=== PATIENT | female | born 1945 | race Caucasian/White ===

== ENCOUNTER 2020-09-26 14:56 | Emergency (ER) | payer OTHER, SELFPAY ==
[2020-09-26 15:25] VITALS: BP 144/56; PULSE 106; RESP 16; TEMP 37.1; O2SAT 100; BMI 20.3
--- NOTE | 2020-09-26 15:40 | ED_ITS ---
HPI - Back Pain/Injury General Chief Complaint: Back Pain/Injury Stated Complaint: Back Pain Time Seen by Provider: 09/26/20 15:39 History of Present Illness HPI Narrative: Patient complains of for 5 months of slowly worsening back pain with no changes in pattern of bowel or bladder, no weakness in her legs, no fever no chills no dysuria, no injury Patient has a history of breast cancer and is followed by an oncologist at [facility] The pain is described as moderate to severe and is worse with movement and she can be comfortable at rest She has been taking Motrin without relief This is been going on for several months Related Data Previous Rx's Medication Instructions Recorded oxycodone 5 mg PO Q6H PRN #14 cap 09/26/20 oxycodone 5 mg PO Q6H PRN #14 cap 09/26/20 Allergies Allergy/AdvReac Type Severity Reaction Status Date / Time codeine Allergy Dizziness Verified 09/26/20 15:37 Penicillins Allergy Hives Verified 09/26/20 15:37 propoxyphene [From Darvon] Allergy Dizziness Verified 09/26/20 15:37 Review of Systems Review of Systems: Review of systems is positive for back pain which radiates into the gluteal area There is no numbness no weakness no incontinence no changes to bowel or bladder no fever no chills no chest pain no abdominal pain no rash, no headache, no diz ziness Yes all other systems are reviewed and are negative [facility] Past Medical History [facility] Narrative: PMH is significant for breast cancer Medical History (Updated 09/26/20 @ 19:44 by GREG Flood) Breast CA Surgical History (Updated 09/26/20 @ 15:31 by Jess Altamirano) History of lumpectomy of left breast Social History Social History Alcohol intake: never Smoked in Last 30 Days: No Use of substances other than those prescribed or required for medical reasons: No Advance Directives: No Advance Directives Information Provided: Yes Physical Exam Vital Signs: Vital Signs: Last Vital Signs Temp 98.8 F 09/26/20 18:52 Pulse 90 09/26/20 18:52 Resp 16 09/26/20 18:52 BP 188/76 H 09/26/20 18:52 Pulse Ox 100 09/26/20 18:52 Body Mass Index 20.3 Patient is A&O x3, uncomfortable when she stands up and changes position but comfortable laying down, she is able to ambulate with her cane Head is normocephalic atraumatic neck is supple chest is clear to auscultation bilaterally no adventitious sounds the heart no obvious murmur the abdomen is soft and nontender the extremities are full range of motion x4 without tenderness or swelling the back exam there is tenderness diffusely over the lower lumbar area including over the bones, the skin is intact there is no redness or warmth, there is no CVA tenderness Neuro motor is 5/5x4, sensation is intact, patient walks with a limping gait using a cane due to pain in her back Course Course Course Narrative: Patient was treated with analgesics with some relief of pain CT scan was done and showed metastatic disease to the bones and the liver with a pathologic fracture at T12 This was discussed with the patient who understood the importance of follow-up with her oncologist Her oncologist is at [facility], I called the service and got a doctor Kannan who was covering for him The findings were discussed and he said the patient could be followed very closely to call the office Sunday and she could be seen early next week This was discussed with the patient was also offered admission for pain control The patient refused admission and wanted to go home and said she could follow on Sunday with her oncologist and she was given a copy of the disc and was able to ambulate from the ER using her cane Discharge Plan Discharge Clinical Impression: Pathologic fracture Qualifiers: Pathology associated with fracture: neoplastic disease Site of pathological fracture: vertebra Encounter type: sequela Qualified Code(s): M84.58XS - Pathological fracture in neoplastic disease, other specified site, sequela Breast carcinoma metastatic to multiple sites Qualifiers: Laterality: unspecified laterality Qualified Code(s): C50.919 - Malignant neoplasm of unspecified site of unspecified female breast Patient Disposition: Home, Self-Care Additional Instructions: The pain in your back is from spread of breast cancer to your bones and has resulted in a compression fracture in your spine I spoke to a partner of her oncologist who said they could see you very early next week and you should call 1st thing Sunday to be seen by your oncologist We gave you a copy of the disc which they will need so bring it to the visit Return to the ER any time for any worse condition or any concerns Prescriptions: New oxycodone 5 mg capsule 5 mg PO Q6H PRN (Reason: pain) Qty: 14 RF: 0 oxycodone 5 mg capsule 5 mg PO Q6H PRN (Reason: pain) Qty: 14 RF: 0 Interventions: ED Discharge Assessment Last Done: 09/26/20 20:35 Discharge Date/Time: 09/26/20 20:38
--- NOTE | 2020-09-26 15:52 | CT_ITS ---
EXAMINATION: CT ABDOMEN AND PELVIS WITHOUT CONTRAST CLINICAL INFORMATION: Back pain. History of breast cancer. COMPARISON: None TECHNIQUE: Multidetector volumetric imaging was performed from the superior aspect of the liver through the pubic symphysis. Sagittal and coronal reformatted images were obtained on the technologist's workstation. This CT examination was performed using dose optimization techniques as appropriate, variously including the following: *Automated exposure control *Adjustment of mA and/or kV according to patient size (this includes techniques or standardized protocols for targeted exams where dose is matched to indication/reason for exam; i.e. extremities or head) *Use of iterative reconstruction technique DLP: 573 mGy-cm FINDINGS: IMAGED THORAX: Incompletely imaged elongated mass within the inferior left breast extends to and through the skin surface. LIVER, GALLBLADDER, AND BILIARY TREE: Diffuse metastatic disease throughout the liver. No intra or extrahepatic biliary dilatation. Gallbladder unremarkable. PANCREAS: Unremarkable. SPLEEN: Unremarkable. ADRENAL GLANDS: There is a 2.3 x 1.4 cm left adrenal nodule. Right adrenal gland is normal. KIDNEYS AND URETERS: Bilateral nonobstructive intrarenal calculi are present, at least 5 on the left and 6 on the right measuring up to 3 mm. No hydronephrosis or perinephric abnormality. Ureters are normal in course and caliber. BLADDER: Unremarkable. GASTROINTESTINAL TRACT: Pancolonic diverticulosis. No evidence of diverticulitis. Moderate hiatal hernia. Small bowel unremarkable. ABDOMINAL WALL: No significant hernia is appreciated. LYMPH NODES: Pathologically enlarged left pelvic lymph nodes measure up to 2.3 x 1.5 cm. VASCULAR: Aorta is atherosclerotic but normal caliber. PELVIC VISCERA: Uterus and adnexa unremarkable. OSSEOUS STRUCTURES: Extensive osseous metastatic disease present throughout included axial and appendicular skeleton. There is a compression fracture at T12 resulting in 50% height loss anteriorly and 25% height loss posteriorly with mild dorsal convexity of the posterior cortex, resulting in mild central canal stenosis. This fracture is age indeterminate. Lucency extends into the posterior elements on the left at this level indicating that it represents a pathologic fracture. There is extensive involvement of the pelvis, particularly the left iliac bone and left hemisacrum with soft tissue components extending into the overlying musculature including the iliac is and gluteus minimus. CT/CT abdomen pelvis wo con IMPRESSION: * Pathologic compression fracture at T12 results in 75% height loss centrally, 50% height loss anteriorly and 25% height loss posteriorly resulting in mild central canal stenosis. * Extensive osseous metastatic involvement without additional pathologic fracture elsewhere. * Fungating left breast mass, partially imaged. * Diffuse metastatic involvement of the liver, with pathologic left pelvic adenopathy. * Bilateral nonobstructive intrarenal calculi. * Left adrenal 2.3 cm nodule.
[2020-09-26] MEDS: oxyCODONE HCl Immed Release 5 MG TABLET 2.5 MG PO ×2 (18:50→19:49)
[2020-09-26 18:52] VITALS: BP 188/76; PULSE 90; RESP 16; TEMP 37.1; O2SAT 100
--- NOTE | 2020-09-26 19:13 | PC.NURSE ---
GREG EDDY SPOKE WITH PT ABOUT HER FINDING IN HER CT SCAN AND GREG EDDY SPOKE ON THE PHONE WITH HER ONCOLOGIST THEY WILL BE EXPECTING HER CALL ON SUNDAY TO SCHEDULE AN APT WITH THEM.
== END 2020-09-26 20:38 | disposition home or self-care (01) ==
PROVIDERS: Emergency Provider Emergency Medicine; PCP Family Medicine
DX: M84.58XS Pathological fracture in neoplastic disease, other specified site, sequela (principal); C50.919 Malignant neoplasm of unspecified site of unspecified female breast; M25.552 Pain in left hip; M25.551 Pain in right hip; M54.5 Low back pain; X58.XXXS Exposure to other specified factors, sequela; Z79.899 Other long term (current) drug therapy
CPT/HCPCS: 74176; 99284

== ENCOUNTER 2020-10-13 13:36 | Inpatient (IN) | payer OTHER, MEDICARE, SELFPAY ==
[2020-10-13 13:44] VITALS: BP 115/98; BP 161/85; PULSE 79; PULSE 80; RESP 16; TEMP 36.7; O2SAT 98; BMI 19.9
--- NOTE | 2020-10-13 14:20 | PC.NURSE ---
pt awake, oriented and answers questions appropriately. EMS reports pt was found on a heavily soiled couch, they also report the house was unkempt. Pt appears to understand she had breast cancer but denies spinal mets. When questioned she reports she hurt her back when she was moved on a CT scan table. She also states she once fell in a hole. She does not discuss her cancer or treatment. Pt has been cleaned of large amount of foul smelling stool, also has had dry gauze placed over her chest lesion. The lesion to her chest is raised and red in areas, open and leaking purulent drainage.
--- NOTE | 2020-10-13 14:33 | ED.GENADULT ---
HPI - General Adult General Chief complaint: General Medical Stated complaint: failure to thrive Time Seen by Provider: 10/13/20 14:03 Source: patient and EMS Mode of arrival: EMS Limitations: physical limitation (Intractable back pain) History of Present Illness HPI narrative: 75yoF c PMHx breast Cancer c METs to Liver and Spine, T12 pathological compression fracture presenting to the ED c c/o worsening back pain since her last visit here. Patient reports that she has been unable to get out of bed for days and she has been urinating and having bowel movements on herself due to her back pain that she is unable to control at home despite given oxycodone 5 mg tablets on her last visit here. Patient reports she feels the sensation of having to urinate and have a bowel movement although is unable to actually get to the actual toilet. Therefore EMS was called by the est[facility] of the building she lives in. Patient reports that she has called her oncologist multiple times and has not received a call back for treatment for pain control. Denies any other complaints or concerns at this time. Related Data Previous Rx's Medication Instructions Recorded oxycodone 5 mg PO Q6H PRN #14 cap 09/26/20 oxycodone 5 mg PO Q6H PRN #14 cap 09/26/20 Allergies Allergy/AdvReac Type Severity Reaction Status Date / Time codeine Allergy Dizziness Verified 09/26/20 15:37 Penicillins Allergy Hives Verified 09/26/20 15:37 propoxyphene [From Darvon] Allergy Dizziness Verified 09/26/20 15:37 Review of Systems Review of Systems: Constitutional : No trauma, No Weight loss, No Fever, No Chills, ENT/Mouth : No Hearing loss, No Ear Pain, No Nasal Congestion, No Sinus Pain, No Hoarseness, No sore throat, No Rhinorrhea, No Swallowing Difficulty Cardiovascular : No Chest Pain, No SOB Respiratory : No Cough, No Dyspnea Gastrointestinal : No Nausea, No Vomiting, No Diarrhea, No abdominal Pain, No Hematochezia, No Melena Genitourinary : No Dysuria, No Urinary Frequency, No Hematuria, No Urinary or Bowel Incontinence/retention Musculoskeletal : + Back pain, No neck pain, No joint stiffness, No joint swelling Skin : No Skin Lesions, No rash or signs of infection Neuro : No Weakness, No radiation, No Numbness, No Paresthesias, No headache, no loss of bowel or bladder incontinence, no saddle anesthesia Denies history of IV drug usage. Yes all other systems are reviewed and are negative PMFSH Past Medical History Attestation statement: The following information was validated with the patient. Medical History Breast CA Surgical History History of lumpectomy of left breast Social History Social History Alcohol intake: never Smoking Status: Never smoker Smoked in Last 30 Days: No Use of substances other than those prescribed or required for medical reasons: No Advance Directives: No Advance Directives Information Provided: Yes Physical Exam Vital Signs: Vital Signs: Last Vital Signs Temp 98.5 F 10/13/20 15:30 Pulse 98 10/13/20 15:30 Resp 16 10/13/20 15:30 BP 173/78 H 10/13/20 15:30 Pulse Ox 96 10/13/20 15:30 Body Mass Index 19.9 vital signs have been reviewed as normal and appeared to be correct. Blood pressure normal. Heart rate normal. Respiration rate normal. Temperature normal. Oxygen saturation normal. Appearance: Alert. Oriented X3. No acute distress. Head: Normal external exam. Normocephalic. Atraumatic. No Shelton signs noted. No raccoon eyes noted Eyes: PERRLA. EOMI. Conjunctiva and sclera normal. Eyelids normal. ENT: EAC normal. TM's Normal. Pharynx normal. Uvula midline. Moist mucous membranes. No trismus noted. No drooling noted. No muffled voice noted. Neck: Normal inspection. Neck supple. FROM. No adenopathy. Thyroid Normal. No meningeal signs. No neck mass noted. CVS: Normal heart rate and rhythm. Heart sound normal. No murmurs noted. Pulses normal throughout. Respiratory: No respiratory distress. Painless inspiration. Breath sounds normal. No wheezes/rales/rhonchi noted. Chest nontender. Large mass noted to left anterior chest wall consistent with the patient's cancer. No accessory muscle usage noted or decreased air movement noted. Abdomen: Soft and nontender. Bowel sounds normal in all 4 quadrants. No distention noted. No organomegaly noted. No visible injury noted. Back: No CVA tenderness. Full range of motion noted. No obvious deformities, or edema. Mild para-spinal muscular tenderness from lumbar region to coccyx. Full ROM in back and lower extremities. 5/5 strength hip extension/flexion, abduction, adduction. Mild Lumbar pain with hip flexion against resistance. Straight leg raise test negative on right; Straight leg raise test negative on left; Reflexes normal ankle and knee bilaterally; EHL motor strength normal bilaterally Skin: Skin warm and dry. Normal skin color. Normal skin turgor. No rashes/lacerations noted. Extremities: No lower extremity edema. Extremities exhibit normal range of motion. Extremities nontender. Neuro: Oriented X 3. No motor deficit. No sensory deficit. Reflexes normal. Course Course Course Narrative: 14:25PM - 75yoF c PMHx breast Cancer c METs to Liver and Spine, T12 pathological compression fracture presenting to the ED c c/o worsening back pain And unable to care for herself at home since she left this emergency department. - Plan: Labs, Provide 5 mg of oxycodone, 50 mcg of fentanyl for pain control. Then plan to admit for IR vertebroplasty. I called the patient's pharmacy on [facility] [address] [facility] [address] in [place] and patient is not on any blood thinners. Patient understands agrees with this plan. Reevaluation(s) Reevaluation #1: - BUN 42/creatinine 1.41. Calcium 12.1. Total bilirubin 1.2. Direct bilirubin 0.8. AST 404. ALT 238. Alkaline phosphate 1239. COVID swab negative. All other labs are within normal limits. - Due to the patient's renal function 1 L of IV fluids ordered at this time. The rest of the labs most likely are chronic although unable to compared to priors as there is no other blood work in the system to compare to. +patient has metastatic cancer to liver. - Plan is to admit for pain control and for IR vertebroplasty on Sunday. Patient understands agrees with this plan. Time: 16:07 Medical Decision Making Lab Data Result diagrams: 10/13/20 14:46 10/13/20 14:46 Labs: Lab Results 10/13/20 10/13/20 10/13/20 Range/Units 14:46 14:46 14:46 WBC 11.7 H (4.8-10.8) X10*3/uL RBC 3.82 L (4.20-5.50) X10*6/uL Hgb 10.9 L (12.0-16.0) g/dl Hct 33.8 L (37-47) % MCV 88.5 (80-98) fL MCH 28.5 (27.0-33.0) pg MCHC 32.2 (31.0-35.0) g/dl RDW 14.5 (11.0-16.0) % Plt Count 347 (160-400) X10*3/uL MPV 9.9 (9.4-12.3) fL Immature Gran % (Auto) 1.6 H (0.0-0.4) % Neut % (Auto) 77.8 H (45-73) % Lymph % (Auto) 11.4 L (20-40) % [place] % (Auto) 8.7 (2-11) % Eos % (Auto) 0.2 (0-4) % Baso % (Auto) 0.3 (0-2) % Lymph # (Auto) 1.3 (1.2-4.9) X10*3/uL [place] # (Auto) 1.0 (0.1-1.2) X10*3/uL Eos # (Auto) 0.0 (0.0-0.4) X10*3/uL Baso # (Auto) 0.0 (0.0-0.2) X10*3/uL Abs Immat Gran (auto) 0.19 H (0.00-0.03) X10*3/uL Absolute Neuts (auto) 9.1 H (2.0-8.3) X10*3/uL Absolute Nucleated RBC 0.000 (0.0-0.012) X10*3/uL Nucleated RBC % (auto) 0.0 (0.0-0.2) /100WBC Hold Purple Top SEE NOTE PT 14.8 H (10.8-13.0) SEC INR 1.2 H (0.9-1.1) Sodium (135-145) mmol/L Potassium (3.3-5.1) mmol/l Chloride (96-108) mmol/L Carbon Dioxide (22-29) mmol/L Anion Gap (12-20) BUN (9-16) mg/dL Creatinine (0.5-1.4) mg/dL Estim Creat Clear Calc Estimated GFR Random Glucose (60-115) mg/dL Calcium (8.4-10.2) mg/dL Magnesium (1.6-2.6) mg/dL Total Bilirubin (0.0-1.0) mg/dL Direct Bilirubin (0.0-0.5) mg/dL AST (5-31) U/L ALT (0-31) U/L Alkaline Phosphatase (39-117) U/L Total Protein (6.5-8.0) g/dL Albumin (3.5-5.0) g/dL COVID-19 (REEMA) (Negative) COVID-19 Clin Com 10/13/20 10/13/20 Range/Units 14:46 14:46 WBC (4.8-10.8) X10*3/uL RBC (4.20-5.50) X10*6/uL Hgb (12.0-16.0) g/dl Hct (37-47) % MCV (80-98) fL MCH (27.0-33.0) pg MCHC (31.0-35.0) g/dl RDW (11.0-16.0) % Plt Count (160-400) X10*3/uL MPV (9.4-12.3) fL Immature Gran % (Auto) (0.0-0.4) % Neut % (Auto) (45-73) % Lymph % (Auto) (20-40) % [place] % (Auto) (2-11) % Eos % (Auto) (0-4) % Baso % (Auto) (0-2) % Lymph # (Auto) (1.2-4.9) X10*3/uL [place] # (Auto) (0.1-1.2) X10*3/uL Eos # (Auto) (0.0-0.4) X10*3/uL Baso # (Auto) (0.0-0.2) X10*3/uL Abs Immat Gran (auto) (0.00-0.03) X10*3/uL Absolute Neuts (auto) (2.0-8.3) X10*3/uL Absolute Nucleated RBC (0.0-0.012) X10*3/uL Nucleated RBC % (auto) (0.0-0.2) /100WBC Hold Purple Top PT (10.8-13.0) SEC INR (0.9-1.1) Sodium 143 (135-145) mmol/L Potassium 4.1 (3.3-5.1) mmol/l Chloride 104 (96-108) mmol/L Carbon Dioxide 23 (22-29) mmol/L Anion Gap 20 (12-20) BUN 42 H (9-16) mg/dL Creatinine 1.41 H (0.5-1.4) mg/dL Estim Creat Clear Calc 26.9 Estimated GFR 36 Random Glucose 95 (60-115) mg/dL Calcium 12.1 H (8.4-10.2) mg/dL Magnesium 2.1 (1.6-2.6) mg/dL Total Bilirubin 1.2 H (0.0-1.0) mg/dL Direct Bilirubin 0.8 H (0.0-0.5) mg/dL AST 404 H (5-31) U/L ALT 238 H (0-31) U/L Alkaline Phosphatase 1239 H (39-117) U/L Total Protein 7.4 (6.5-8.0) g/dL Albumin 3.8 (3.5-5.0) g/dL COVID-19 (REEMA) Negative (Negative) COVID-19 Clin Com See Note Critical Care Time Critical Care Time Critical Care Time: Yes Total Critical Care Time: 60 Attestation: I personally attest to this time spent taking care of the patient Discharge Plan Discharge Clinical Impression: Intractable back pain T12 compression fracture Qualifiers: Encounter type: subsequent encounter Patient Disposition: Admitted As Inpatient
[2020-10-13 14:54] LABS: MANUAL DIFF FLAG NO
[2020-10-13 14:57] LABS: Basophils Percent Auto 0.3 % (0-2); Eosinophils Percent Auto 0.2 % (0-4); Hematocrit 33.8 % (37-47); Hemoglobin 10.9 g/dl (12.0-16.0); Imm Gran Abs Auto 0.19 X10*3/uL (0.00-0.03); Imm Gran Pct Auto 1.6 % (0.0-0.4); Lymphocytes Absolute Auto 1.3 X10*3/uL (1.2-4.9); Lymphocytes Percent Auto 11.4 % (20-40); Mean Corpuscular HGB Conc 32.2 g/dl (31.0-35.0); Mean Corpuscular Hemoglobin 28.5 pg (27.0-33.0); Mean Corpuscular Volume 88.5 fL (80-98); Mean Platelet Volume 9.9 fL (9.4-12.3); Monocytes Percent Auto 8.7 % (2-11); Neutrophils Absolute Auto 9.1 X10*3/uL (2.0-8.3); Neutrophils Percent Auto 77.8 % (45-73); Platelet Count 347 X10*3/uL (160-400); Red Blood Count 3.82 X10*6/uL (4.20-5.50); Red Cell Distribution Width 14.5 % (11.0-16.0); White Blood Count 11.7 X10*3/uL (4.8-10.8)
[2020-10-13] MEDS: fentaNYL citrate/PF 100 MCG/2 ML VIAL 50 MCG IVPUSH (14:57)
[2020-10-13] MEDS: oxyCODONE HCl Immed Release 5 MG TABLET PO (15:00)
[2020-10-13 15:03] LABS: INTERNATIONAL NORM RATIO 1.2 (0.9-1.1); Prothrombin Time 14.8 SEC (10.8-13.0)
[2020-10-13 15:21] LABS: COVID-19 Test Negative (Negative); IDNOW Serial# 9DD0AD1C
[2020-10-13 15:22] LABS: Alanine Aminotransferase 238 U/L (0-31); Albumin Level 3.8 g/dL (3.5-5.0); Alkaline Phosphatase 1239 U/L (39-117); Anion Gap 20 (12-20); Aspartate Amino Transferase 404 U/L (5-31); Bilirubin Direct 0.8 mg/dL (0.0-0.5); Bilirubin Total 1.2 mg/dL (0.0-1.0); Blood Urea Nitrogen 42 mg/dL (9-16); Calcium 12.1 mg/dL (8.4-10.2); Carbon Dioxide 23 mmol/L (22-29); Chloride 104 mmol/L (96-108); Creatinine Clr Calc Pharmacy 26.9; Estimated Glomerular Filt Rate 36; Glucose Random 95 mg/dL (60-115); Magnesium 2.1 mg/dL (1.6-2.6); Potassium 4.1 mmol/l (3.3-5.1); Sodium 143 mmol/L (135-145); Total Protein 7.4 g/dL (6.5-8.0)
[2020-10-13 15:30] VITALS: BP 173/78; PULSE 98; RESP 16; TEMP 36.9; O2SAT 96
[2020-10-13 15:53] LABS: Partial Thromboplastin Time 30.5 SEC (24.1-38.0)
--- NOTE | 2020-10-13 16:29 | W.MHC.ACPN ---
Advanced Care Planning Note Advanced Care Planning Note Discussed with: patient Time spent (in minutes): 20 Narrative: I had a chance to meet the patient at time of admission in the emergency. We discussed his current presentation, ongoing medical problems and goals of care. The patient has history of metastatic breast cancer not on any chemotherapy at this point . She has large chest wall mass originating from the previous cancer area. She reports being active earlier this year and able to move around and hike in the mountains around the area. she reported having worsening lower extremity weakness for the last few months and reported significant back pain that started almost 10 days ago. At this point she is not seeking any active treatment but she will follow-up with her oncologist for further assessment and plan. Upon discussing goals of care the patient sees that she does not want to be resuscitated or intubated. A MOLST form was signed and placed in her folder. Problems Discussed (1) Metastatic cancer: (2) Breast CA:
--- NOTE | 2020-10-13 16:33 | P.HPHOSP_ITS ---
History of Present Illness Date of Service: 10/13/20 Chief Complaint: back pain a 75 years old lady with past medical history of breast cancer who presents to the hospital complaining of worsening back pain over the last 10 days. The patient report having lower extremity weakness for couple of months at this point. She was evaluated in the hospital almost [address] scan showing fracture in T12 with losing of 75% of the height of the vertebra. She was discharged home on pain medication but were not helping as her pain continued to get worse and she was a not able to ambulate around. Discussed with IR, plan for kyphoplasty on Sunday Admitted for pain control And kyphoplasty Review of Systems Review of Systems: No fever, chills Lower back pain, general weakness No chest pain, palpitation No shortness of breath or coughing No abdominal pain, nausea or vomiting No urinary symptoms No any rash or wounds PMFSH Medical History Breast CA Surgical History History of lumpectomy of left breast Social History Alcohol intake: never Smoking Status: Never smoker Smoked in Last 30 Days: No Use of substances other than those prescribed or required for medical reasons: No Advance Directives: No Advance Directives Information Provided: Yes Meds Allergies Allergy/AdvReac Type Severity Reaction Status Date / Time codeine Allergy Dizziness Verified 09/26/20 15:37 Penicillins Allergy Hives Verified 09/26/20 15:37 propoxyphene [From Darvon] Allergy Dizziness Verified 09/26/20 15:37 Home Medications Medication Instructions Recorded Confirmed Type No Known Home Meds 10/13/20 10/13/20 History Physical Exam Vital Signs and Narrative: Vital Signs: Last Vital Signs Temp 98.5 F 10/13/20 15:30 Pulse 98 10/13/20 15:30 Resp 16 10/13/20 15:30 BP 173/78 H 10/13/20 15:30 Pulse Ox 96 10/13/20 15:30 Body Mass Index 19.9 Constitutional : Alert, oriented, not in distress Neck : Normal inspection, Supple Cardiovascular : RRR, S1 S2, no lower extremity edema Respiratory : Good bilateral air entry, no crackles, wheezes or rhonchi Gastrointestinal: soft, lax, Normal bowel sounds, Non tender Skin : Warm/Dry, large chest wall mass, bad odor, minimal bleeding noticed originating from breast cancer Neurological : Alert & oriented x3, No focal deficit Results Labs CBC and Chem 7: 10/13/20 14:46 10/13/20 14:46 Labs: Laboratory Results - last 24 hr 10/13/20 10/13/20 10/13/20 14:46 14:46 14:46 MCV 88.5 MCH 28.5 MCHC 32.2 RDW 14.5 Plt Count 347 MPV 9.9 Immature Gran % (Auto) 1.6 H Neut % (Auto) 77.8 H Lymph % (Auto) 11.4 L [place] % (Auto) 8.7 Eos % (Auto) 0.2 Baso % (Auto) 0.3 Lymph # (Auto) 1.3 [place] # (Auto) 1.0 Eos # (Auto) 0.0 Baso # (Auto) 0.0 Abs Immat Gran (auto) 0.19 H Absolute Neuts (auto) 9.1 H Absolute Nucleated RBC 0.000 Nucleated RBC % (auto) 0.0 Hold Purple Top SEE NOTE PT 14.8 H INR 1.2 H APTT 30.5 Anion Gap Estim Creat Clear Calc Estimated GFR Random Glucose Calcium Magnesium Total Bilirubin Direct Bilirubin AST ALT Alkaline Phosphatase Total Protein Albumin COVID-19 (REEMA) COVID-[facility] Global Clin Com 10/13/20 10/13/20 14:46 14:46 MCV MCH MCHC RDW Plt Count MPV Immature Gran % (Auto) Neut % (Auto) Lymph % (Auto) [place] % (Auto) Eos % (Auto) Baso % (Auto) Lymph # (Auto) [place] # (Auto) Eos # (Auto) Baso # (Auto) Abs Immat Gran (auto) Absolute Neuts (auto) Absolute Nucleated RBC Nucleated RBC % (auto) Hold Purple Top PT INR APTT Anion Gap 20 Estim Creat Clear Calc 26.9 Estimated GFR 36 Random Glucose 95 Calcium 12.1 H Magnesium 2.1 Total Bilirubin 1.2 H Direct Bilirubin 0.8 H AST 404 H ALT 238 H Alkaline Phosphatase 1239 H Total Protein 7.4 Albumin 3.8 COVID-19 (REEMA) Negative COVID-19 Clin Com See Note Assessment and Plan (1) Metastatic cancer: Status: Acute (2) History of lumpectomy of left breast: Status: Acute (3) Breast CA: Status: Acute (4) Intractable back pain: Status: Acute (5) T12 compression fracture: Qualifiers: Encounter type: subsequent encounter Status: Acute a 75 years old lady with past medical history of breast cancer who presents to the hospital complaining of worsening back pain over the last 10 days. Intractable back pain T12 compression Fracture CT scan as reported Oxycodone as needed for pain Plan for IR kyphoplasty Sunday Keep NPO night metastatic breast cancer Chest wall mass Not on chemotherapy at this point Oncology following in [facility] hypertension Elevated blood pressure readings home Will continue to monitor DVT PPX SCDs,
[2020-10-13] MEDS: 0.9 % Sodium Chloride 1,000 ML 999 ML IVCONT (16:44)
[2020-10-13 18:48] VITALS: BP 159/76; PULSE 90; RESP 16; TEMP 36.9; O2SAT 96
[2020-10-13 19:10] LABS: Glucose Urine UA NEG (NEG); Leukocyte Esterase Urine 1+ (NEG); Nitrite Urine POS (NEG); PH 5.5 (5.0-8.0); Specific Gravity - Urine 1.025 (1.005-1.025); Urine Blood TRACE (NEG); Urine Ketones NEG (NEG); Urine Protein TRACE MG/DL (NEG-TRACE)
[2020-10-13 19:13] LABS: Appearance Urine CLEAR; Color Urine YELLOW
[2020-10-13 19:33] LABS: Bacteria Urine 2+ /LPF; RBC Urine 0-2 /HPF (0)
[2020-10-13 19:43] VITALS: BP 172/86; PULSE 97; RESP 17; TEMP 36.3; O2SAT 98
[2020-10-13] MEDS: 0.9 % Sodium Chloride Flush 3 ML SYRINGE IVFLUSH (23:53)
[2020-10-14] VITALS (9 sets, daily range): BP systolic 111–144; BP diastolic 56–71; PULSE 81–90; RESP 16–19; TEMP 36.3–36.8; O2SAT 77–99
[2020-10-14] MEDS: 0.9 % Sodium Chloride Flush 3 ML SYRINGE IVFLUSH ×3 (07:45→23:31)
[2020-10-14] MEDS: Acetaminophen 325 MG TABLET 650 MG PO (07:50)
[2020-10-14] MEDS: oxyCODONE HCl Immed Release 5 MG TABLET PO (07:50)
[2020-10-14 08:09] LABS: Hematocrit 29.1 % (37-47); Hemoglobin 9.3 g/dl (12.0-16.0); Mean Corpuscular Hemoglobin 28.4 pg (27.0-33.0); Mean Corpuscular Volume 88.7 fL (80-98); Mean Platelet Volume 10.3 fL (9.4-12.3); Platelet Count 311 X10*3/uL (160-400); Red Blood Count 3.28 X10*6/uL (4.20-5.50); Red Cell Distribution Width 14.6 % (11.0-16.0); White Blood Count 8.9 X10*3/uL (4.8-10.8)
[2020-10-14 08:39] LABS: Alanine Aminotransferase 206 U/L (0-31); Alkaline Phosphatase 1032 U/L (39-117); Aspartate Amino Transferase 313 U/L (5-31); Bilirubin Direct 0.4 mg/dL (0.0-0.5); Bilirubin Total 0.5 mg/dL (0.0-1.0); Blood Urea Nitrogen 34 mg/dL (9-16); Creatinine Clr Calc Pharmacy 29.8; Estimated Glomerular Filt Rate 41; Glucose Random 125 mg/dL (60-115)
[2020-10-14 08:55] LABS: Anion Gap 14 (12-20); Calcium 10.8 mg/dL (8.4-10.2); Carbon Dioxide 22 mmol/L (22-29); Chloride 107 mmol/L (96-108); Potassium 3.7 mmol/l (3.3-5.1); Sodium 139 mmol/L (135-145)
--- NOTE | 2020-10-14 12:08 | P.PNIM_ITS ---
Subjective Subjective Date of Service: 10/14/20 Interval History: the patient was seen and evaluated this morning Laying in bed, complaining of low back pain that goes to her lower extremities Denies any fever, chills or shortness of breath No reported other overnight events. Systemic review: No fever, chills , feels generalized weakness No chest pain, palpitation No shortness of breath or coughing No abdominal pain, nausea or vomiting No urinary symptoms Physical Exam Vital Signs: Vital Signs: Last Vital Signs Temp 98.1 F 10/14/20 11:35 Pulse 82 10/14/20 11:35 Resp 16 10/14/20 11:35 BP 120/70 10/14/20 11:35 Pulse Ox 77 L 10/14/20 11:35 Body Mass Index 19.9 Constitutional : Alert, oriented, not in distress Neck : Normal inspection, Supple Cardiovascular : RRR, S1 S2, no lower extremity edema Respiratory : Good bilateral air entry, no crackles, wheezes or rhonchi Gastrointestinal: soft, lax, Normal bowel sounds, Non tender Skin : Warm/Dry, large chest wall mass, bad odor, minimal bleeding noticed originating from breast cancer Neurological : Alert & oriented x3, No focal deficit Objective Data Current Medications Generic Name Dose Route Start Last Admin Trade Name Freq PRN Reason Stop Dose Admin Acetaminophen 650 mg 10/13/20 19:10 10/14/20 07:50 Acetaminophen 325 Mg Tablet PO 650 mg Q6H PRN Administration Pain, Mild (Pain Scale 1-3) Oxycodone HCl 5 mg 10/13/20 19:10 10/14/20 07:50 Oxycodone Hcl Immed Release 5 Mg Tablet PO 5 mg Q6H PRN Administration Pain, Severe (Pain Scale 7-10) Pharmacy Consult 1 each 10/13/20 14:25 Consult Rx Perform Med Rec MISCELLANE ONCE PRN Consult order Sodium Chloride 3 ml 10/14/20 00:00 10/14/20 07:45 0.9 % Sodium Chloride Flush 3 Ml Syringe IVFLUSH 3 ml QSHIFT LETICIA Administration Labs CBC & Chem 7: 10/14/20 07:09 10/14/20 06:17 Microbiology Microbiology Results: Microbiology 10/13/20 19:00 Urine clean catch - Clean Catch Midstream Urine Culture - Preliminary Gram negative roel Assessment and Plan (1) Metastatic cancer: Status: Acute (2) History of lumpectomy of left breast: Status: Acute (3) Breast CA: Status: Acute (4) Intractable back pain: Status: Acute (5) T12 compression fracture: Status: Acute Assessment and Plan: a 75 years old lady with past medical history of breast cancer who presents to the hospital complaining of worsening back pain over the last 10 days. Intractable back pain T12 compression Fracture CT scan as reported, 75% loss of T12 vertebrae Oxycodone as needed for pain Plan for IR kyphoplasty tomorrow morning Keep NPO night To repeat CT scan before and after the procedure Anemia, acute on chronic Hemoglobin dropped to 9.3 from 10.8 at admission Unclear baseline Likely dilution inpatient, chronically could be secondary to cancer of chronic loss To check occult blood Monitor CBC UTI Urine growing gram-negative rods Start ceftriaxone pending final sensitivity metastatic breast cancer Chest wall mass Not on chemotherapy at this point Oncology following in [facility] hypertension Elevated blood pressure readings home Will continue to monitor DVT PPX SCDs,
[2020-10-14] MEDS: cefTRIAXone sodium 1 GM in 0.9 % Sodium Chloride 50 ML IV (12:43)
--- NOTE | 2020-10-14 13:02 | MHC.CM.PN ---
Pt reports she lives alone and has no DME or services, pt reports prior to this injury she has not needed anything. Pt reports she does not know who her PCP is but she goes to the [facility]. pt reports she sees an oncologist at [facility] and has so many doctors she cannot remember anyones name. Pt reports she was told she would have a VNA at when she goes home but does not know what agency and does not have a preference. Pt will likely need a chair van or ambulance home DC TBD home vs home with VNA vs STR
[2020-10-14] MEDS: Morphine Sulfate 2 MG/ML CARTRIDGE IVPUSH ×2 (14:03→19:30)
[2020-10-15] VITALS (9 sets, daily range): BP systolic 125–174; BP diastolic 73–83; PULSE 84–111; RESP 18–19; TEMP 36.1–37; O2SAT 98–99
--- NOTE | 2020-10-15 | CT_ITS ---
EXAMINATION: CT LUMBAR SPINE WITHOUT CONTRAST CLINICAL INFORMATION: Post kyphoplasty T12 vertebra. COMPARISON: None TECHNIQUE: Axial 2 mm thick and reformatted 2 mm thick images of thoracic spine were obtained from T9-T10 through L2-L3 disc levels. This CT examination was performed using dose optimization techniques as appropriate, variously including the following: *Automated exposure control *Adjustment of mA and/or kV according to patient size (this includes techniques or standardized protocols for targeted exams where dose is matched to indication/reason for exam; i.e. extremities or head) *Use of iterative reconstruction technique DLP; 492 mGy-cm FINDINGS: On the sagittal reconstructed images there is adequate cement occupying the anterior two thirds of T12 vertebra. There is minimal cement migration along the superior endplate fracture line into the adjacent T11-T12 disc. No extravasation of cement seen in the paravertebral space or in the spinal canal. Fracture lines extending through the left pedicle and superior endplate are again visualized and are unchanged to previous lumbar spine performed prior to kyphoplasty. Small posterior bony component is stable compared to previous kyphoplasty exam. The T10, T11, L1 and L2 vertebral heights are maintained. The disc heights are normal. There is a superior endplate Schmorl's node T11 vertebra. CT/CT lumbar spine wo con IMPRESSION: Adequate amount of cement occupying the T12 compression fracture with minimal extravasation in the superior T11-T12 disc extending through an endplate fracture. In addition to vertebral body fracture there is a fracture involving left T12 pedicle.
[2020-10-15 07:15] LABS: Hematocrit 29.3 % (37-47); Hemoglobin 9.3 g/dl (12.0-16.0); Mean Corpuscular HGB Conc 31.7 g/dl (31.0-35.0); Mean Corpuscular Hemoglobin 28.5 pg (27.0-33.0); Mean Corpuscular Volume 89.9 fL (80-98); Mean Platelet Volume 10.3 fL (9.4-12.3); Platelet Count 307 X10*3/uL (160-400); Red Blood Count 3.26 X10*6/uL (4.20-5.50); Red Cell Distribution Width 14.6 % (11.0-16.0); White Blood Count 9.4 X10*3/uL (4.8-10.8)
[2020-10-15 07:28] LABS: INTERNATIONAL NORM RATIO 1.2 (0.9-1.1); Prothrombin Time 13.8 SEC (10.8-13.0)
[2020-10-15] MEDS: 0.9 % Sodium Chloride Flush 3 ML SYRINGE IVFLUSH ×2 (07:29→15:38)
--- NOTE | 2020-10-15 08:00 | CT_ITS ---
EXAMINATION: CT THORACIC SPINE WITHOUT CONTRAST CLINICAL INFORMATION: T12 pathological compression fracture with pre-kyphoplasty evaluation. COMPARISON: CT abdomen and pelvis 09/26/2020. TECHNIQUE: 3 mm thin axial and reformatted 3 mm thin sagittal and coronal images of thoracic spine were obtained from mid T10 through L2-L3 disc level. This CT examination was performed using dose optimization techniques as appropriate, variously including the following: *Automated exposure control *Adjustment of mA and/or kV according to patient size (this includes techniques or standardized protocols for targeted exams where dose is matched to indication/reason for exam; i.e. extremities or head) *Use of iterative reconstruction technique DLP: 433 mGy-cm FINDINGS: On limited evaluation of thoracic spine, there is mild thoracic kyphosis centered at T12 vertebra. There is acute compression fracture T12 vertebra with approximately 50-60% loss of vertebral height more centrally and to the left. There are multiple fractured fissures seen traversing the superior endplate and likely left pedicular fracture. There is a posterior retropulsion of bony fragment resulting in mild central canal stenosis. T12 bone marrow is heterogenous extending into the pedicles more so on the right than left. The findings are consistent with pathological fracture. The adjacent T11, T10, L1 and L2 vertebra and the posterior elements appear intact. The paravertebral soft tissues are normal. Incidentally noted are multiple hypodense liver lesions consistent with metastatic liver disease. CT/CT thoracic spine wo con IMPRESSION: T12 pathological fracture with approximately 50-60% loss of vertebral height more centrally. The bone marrow signal is heterogeneous with extension into the posterior pedicles. There is posterior retropulsion of bone resulting in mild spinal canal stenosis. Multiple liver metastasis. This was better described on previous CT abdomen and pelvis exam 09/26/2020.
[2020-10-15 08:05] LABS: Anion Gap 14 (12-20); Blood Urea Nitrogen 27 mg/dL (9-16); Calcium 10.5 mg/dL (8.4-10.2); Carbon Dioxide 23 mmol/L (22-29); Chloride 106 mmol/L (96-108); Creatinine Clr Calc Pharmacy 35.7; Estimated Glomerular Filt Rate 50; Glucose Random 100 mg/dL (60-115); Potassium 4.2 mmol/l (3.3-5.1); Sodium 139 mmol/L (135-145)
--- NOTE | 2020-10-15 08:48 | HO.ANESPROP2 ---
[facility] Past Medical History Medical History Breast CA Surgical History Surgical History History of lumpectomy of left breast Social History Social History Household Members: None Housing: Condominium Do you presently have visiting nurse or other home services: No Alcohol intake: never Smoking Status: Never smoker Smoked in Last 30 Days: No Patient Interested in Nicotine Replacement: No Patient Given Instructions on How to Stop Smoking: No Second Hand Smoke Exposure: No Use of substances other than those prescribed or required for medical reasons: No Currently Displaying Signs/Symptoms of Drug Intoxication Withdrawal: No Any prior treatment program specific to substance use: No Have you been hit, kicked, punched, or otherwise hurt by someone within the past year? If so, by whom?: No Do you feel safe in your current relationship?: No Current Relationship Is there a partner from a previous relationship who is making you feel unsafe now?: No Are you made to feel afraid or neglected: No Advance Directives: No Advance Directives Information Provided: Yes Do you have thoughts of harming others: None Do you have a plan to hurt others: No Plan Recently lost weight without trying: Yes service: Yes Current occupational status: retired Meds Allergies Allergy/AdvReac Type Severity Reaction Status Date / Time codeine Allergy Dizziness Verified 09/26/20 15:37 Penicillins Allergy Hives Verified 09/26/20 15:37 propoxyphene [From Darvon] Allergy Dizziness Verified 09/26/20 15:37 Home Medications Medication Instructions Recorded Confirmed Type No Known Home Meds 10/13/20 10/13/20 History Exam Exam Date and Time: October 15, 2020 0848 Height,Weight and Vital Signs: Height 5 ft 3 in Weight 51 kg Last Vital Signs Temp 98.6 F 10/15/20 07:33 Pulse 91 10/15/20 07:33 Resp 18 10/15/20 07:33 BP 147/78 H 10/15/20 07:33 Pulse Ox 98 10/15/20 07:33 Pertinent Lab Results Pertinent Lab Results: Laboratory Tests 10/13/20 10/13/20 10/13/20 14:46 14:46 14:46 WBC 11.7 H RBC 3.82 L Hgb 10.9 L Hct 33.8 L MCV 88.5 MCH 28.5 MCHC 32.2 RDW 14.5 Plt Count 347 MPV 9.9 Immature Gran % (Auto) 1.6 H Neut % (Auto) 77.8 H Lymph % (Auto) 11.4 L [place] % (Auto) 8.7 Eos % (Auto) 0.2 Baso % (Auto) 0.3 Lymph # (Auto) 1.3 [place] # (Auto) 1.0 Eos # (Auto) 0.0 Baso # (Auto) 0.0 Abs Immat Gran (auto) 0.19 H Absolute Neuts (auto) 9.1 H Absolute Nucleated RBC 0.000 Nucleated RBC % (auto) 0.0 Hold Purple Top SEE NOTE PT 14.8 H INR 1.2 H APTT 30.5 Sodium Potassium Chloride Carbon Dioxide Anion Gap BUN Creatinine Estim Creat Clear Calc Estimated GFR Random Glucose Calcium Magnesium Total Bilirubin Direct Bilirubin AST ALT Alkaline Phosphatase Total Protein Albumin Urine Color Urine Appearance Urine pH Ur Specific [place] Urine Protein Urine Glucose (UA) Urine Ketones Urine Blood Urine Nitrite Ur Leukocyte Esterase Urine RBC Urine WBC Ur Squamous Epith Cells Urine Bacteria COVID-19 (REEMA) COVID-19 Clin Com 10/13/20 10/13/20 10/13/20 14:46 14:46 18:52 WBC RBC Hgb Hct MCV MCH MCHC RDW Plt Count MPV Immature Gran % (Auto) Neut % (Auto) Lymph % (Auto) [place] % (Auto) Eos % (Auto) Baso % (Auto) Lymph # (Auto) [place] # (Auto) Eos # (Auto) Baso # (Auto) Abs Immat Gran (auto) Absolute Neuts (auto) Absolute Nucleated RBC Nucleated RBC % (auto) Hold Purple Top PT INR APTT Sodium 143 Potassium 4.1 Chloride 104 Carbon Dioxide 23 Anion Gap 20 BUN 42 H Creatinine 1.41 H Estim Creat Clear Calc 26.9 Estimated GFR 36 Random Glucose 95 Calcium 12.1 H Magnesium 2.1 Total Bilirubin 1.2 H Direct Bilirubin 0.8 H AST 404 H ALT 238 H Alkaline Phosphatase 1239 H Total Protein 7.4 Albumin 3.8 Urine Color YELLOW Urine Appearance CLEAR Urine pH 5.5 Ur Specific [place] 1.025 Urine Protein TRACE Urine Glucose (UA) NEG Urine Ketones NEG Urine Blood TRACE Urine Nitrite POS H Ur Leukocyte Esterase 1+ H Urine RBC 0-2 Urine WBC 5-9 H Ur Squamous Epith Cells NONE Urine Bacteria 2+ COVID-19 (REEMA) Negative COVID-19 Clin Com See Note 10/14/20 10/14/20 10/15/20 06:17 07:09 06:10 WBC 8.9 RBC 3.28 L Hgb 9.3 L Hct 29.1 L MCV 88.7 MCH 28.4 MCHC 32.0 RDW 14.6 Plt Count 311 MPV 10.3 Immature Gran % (Auto) Neut % (Auto) Lymph % (Auto) [place] % (Auto) Eos % (Auto) Baso % (Auto) Lymph # (Auto) [place] # (Auto) Eos # (Auto) Baso # (Auto) Abs Immat Gran (auto) Absolute Neuts (auto) Absolute Nucleated RBC 0.000 Nucleated RBC % (auto) 0.0 Hold Purple Top PT 13.8 H INR 1.2 H APTT Sodium 139 Potassium 3.7 Chloride 107 Carbon Dioxide 22 Anion Gap 14 BUN 34 H Creatinine 1.27 Estim Creat Clear Calc 29.8 Estimated GFR 41 Random Glucose 125 H Calcium 10.8 H D Magnesium Total Bilirubin 0.5 Direct Bilirubin 0.4 AST 313 H ALT 206 H Alkaline Phosphatase 1032 H Total Protein 6.0 L Albumin 3.0 L D Urine Color Urine Appearance Urine pH Ur Specific [place] Urine Protein Urine Glucose (UA) Urine Ketones Urine Blood Urine Nitrite Ur Leukocyte Esterase Urine RBC Urine WBC Ur Squamous Epith Cells Urine Bacteria COVID-19 (REEMA) COVID-19 Clin Com 10/15/20 10/15/20 06:10 06:10 WBC 9.4 RBC 3.26 L Hgb 9.3 L Hct 29.3 L MCV 89.9 MCH 28.5 MCHC 31.7 RDW 14.6 Plt Count 307 MPV 10.3 Immature Gran % (Auto) Neut % (Auto) Lymph % (Auto) [place] % (Auto) Eos % (Auto) Baso % (Auto) Lymph # (Auto) [place] # (Auto) Eos # (Auto) Baso # (Auto) Abs Immat Gran (auto) Absolute Neuts (auto) Absolute Nucleated RBC 0.000 Nucleated RBC % (auto) 0.0 Hold Purple Top PT INR APTT Sodium 139 Potassium 4.2 Chloride 106 Carbon Dioxide 23 Anion Gap 14 BUN 27 H Creatinine 1.06 Estim Creat Clear Calc 35.7 Estimated GFR 50 Random Glucose 100 Calcium 10.5 H Magnesium Total Bilirubin Direct Bilirubin AST ALT Alkaline Phosphatase Total Protein Albumin Urine Color Urine Appearance Urine pH Ur Specific [place] Urine Protein Urine Glucose (UA) Urine Ketones Urine Blood Urine Nitrite Ur Leukocyte Esterase Urine RBC Urine WBC Ur Squamous Epith Cells Urine Bacteria COVID-19 (REEMA) COVID-19 Clin Com Assessment and Plan Assessment Anesthesia Assessment: Anesthesia Plan Discussed and Chart Reviewed Final Anesthetic Review NPO: Yes ASA Class: I and Emergency Final Preanesthetic Review: No Changes in Pt Med Stat, Meds/Allgs Chart Reviewed, Consent Obtained/Reviewed and Anes Risks/Benef Reviewed Patient Risk: Low Procedure Risk: Low Anesthetic Plan Anesthetic Plan: GA Disposition: Standard PACU
--- NOTE | 2020-10-15 10:00 | IR_ITS ---
EXAMINATION: IR T11 THORACIC RADIOFREQUENCY ABLATION AND KYPHOPLASTY CLINICAL INFORMATION: Pathological T12 fracture. History of breast CA and multiple liver and bone metastasis. Patient is in significant pain. COMPARISON: None TECHNIQUE: Following explaining fluoroscopy-guided T12 radiofrequency ablation and kyphoplasty procedure, benefits and risks, a written consent was obtained. Patient was placed prone on fluoroscopy table and mid back region was cleaned and draped in the usual sterile manner. 1% lidocaine was injected at the skin following localization of right T12 pedicle. A 22-gauge spinal needle was inserted from the skin to the right T12 pedicle and 0.25% Marcaine injected. Through a small skin incision, a 10-gauge Kyphon needle was advanced through a small skin incision to the level of pedicle and through the pedicle into posterior one-third of T12 vertebra. A second Kyphon needle was inserted in a similar fashion through the skin into the posterior one-third of T12 pedicle. A simple drill was advanced to the right and left needle and a tract created. Subsequently radiofrequency probes were inserted through the right and left needle and ablation was achieved as per algorithm with temperature reaching 70 degrees at the distal tip and approximately 90 to 95 degrees in the field. The ablation was performed for 4-mhl-n-half minutes. Subsequently the probe was removed and high-tensile balloons were advanced and inflated to 200 PSI for 5 minutes. The balloons were deflated and removed and freshly prepared polymethylmethacrylate/cement was injected through the right followed by left needle under continuous AP, oblique and lateral fluoroscopy monitoring. After achieving adequate amount of cement and observing no more cement remaining, the needles were withdrawn and complete hemostasis achieved at puncture site. Patient tolerated procedure extremely well. Sedation was provided by anesthesia department. A CT post kyphoplasty was to be obtained. FINDINGS: On fluoroscopy imaging there is acute compression deformity L5 vertebra with approximately 50% loss of vertebral height more so along the left side than the right. There are fracture lines extending through superior endplate and likely through the left pedicle. Radiofrequency ablation was performed through the right and left needles at the T12 vertebra without immediate complications. Subsequently bipedicular approach T12 kyphoplasty performed. Minimal extravasation seen along the superior endplate fracture at above disc level. FLUOROSCOPY TIME: 15.6 minutes DOSE AREA PRODUCT: 3222 uGy-m2 (microgray-meter squared) IR/IR kyphoplasty thoracic IMPRESSION: Successful fluoroscopy-guided bipedicular approach radiofrequency ablation and kyphoplasty T12 vertebra.
[2020-10-15] MEDS: Morphine Sulfate 2 MG/ML CARTRIDGE IVPUSH ×2 (10:44→16:59)
--- NOTE | 2020-10-15 11:52 | HO.PM.IMPN ---
Subjective Subjective Date of Service: 10/15/20 Interval History: the patient was seen and evaluated this morning Laying in bed, feels better overall but still complaining of low back pain that goes to her lower extremities Denies any fever, chills or shortness of breath No reported other overnight events. Systemic review: No fever, chills , feels generalized weakness No chest pain, palpitation No shortness of breath or coughing No abdominal pain, nausea or vomiting lower back pain No urinary symptoms Physical Exam Vital Signs: Vital Signs: Last Vital Signs Temp 98.6 F 10/15/20 07:33 Pulse 91 10/15/20 07:33 Resp 18 10/15/20 10:44 BP 147/78 H 10/15/20 07:33 Pulse Ox 98 10/15/20 07:33 Body Mass Index 19.9 Constitutional : Alert, oriented, not in distress Neck : Normal inspection, Supple Cardiovascular : RRR, S1 S2, no lower extremity edema Respiratory : Good bilateral air entry, no crackles, wheezes or rhonchi Gastrointestinal: soft, lax, Normal bowel sounds, Non tender Skin : Warm/Dry, large chest wall mass Covered with dressing Neurological : Alert & oriented x3, No focal deficit Objective Data Current Medications Generic Name Dose Route Start Last Admin Trade Name Freq PRN Reason Stop Dose Admin Acetaminophen 650 mg 10/13/20 19:10 10/14/20 07:50 Acetaminophen 325 Mg Tablet PO 650 mg Q6H PRN Administration Pain, Mild (Pain Scale 1-3) Ceftriaxone Sodium 1 gm/ 50 mls @ 100 mls/hr 10/14/20 13:00 10/14/20 13:14 Sodium Chloride IV Infused Q24H LETICIA Infusion Potassium Chloride/Sodium Chloride 20 meq in 1,000 mls @ 80 mls/hr 10/15/20 08:30 10/15/20 09:11 IVCONT 80 mls/hr .[id number] LETICIA Administration Morphine Sulfate 2 mg 10/14/20 12:49 10/15/20 10:44 Morphine Sulfate 2 Mg/Ml Cartridge IVPUSH 2 mg Q4H PRN Administration Pain, Severe (Pain Scale 7-10) Oxycodone HCl 5 mg 10/13/20 19:10 10/14/20 07:50 Oxycodone Hcl Immed Release 5 Mg Tablet PO 5 mg Q6H PRN Administration Pain, Severe (Pain Scale 7-10) Pharmacy Consult 1 each 10/13/20 14:25 Consult Rx Perform Med Rec MISCELLANE ONCE PRN Consult order Sodium Chloride 3 ml 10/14/20 00:00 10/15/20 07:29 0.9 % Sodium Chloride Flush 3 Ml Syringe IVFLUSH 3 ml QSHIFT LETICIA Administration Labs CBC & Chem 7: 10/15/20 06:10 10/15/20 06:10 Microbiology Microbiology Results: Microbiology 10/13/20 19:00 Urine clean catch - Clean Catch Midstream Urine Culture - Final Escherichia coli Assessment and Plan (1) Metastatic cancer: Status: Acute (2) History of lumpectomy of left breast: Status: Acute (3) Breast CA: Status: Acute (4) Intractable back pain: Status: Acute (5) T12 compression fracture: Status: Acute Assessment and Plan: a 75 years old lady with past medical history of breast cancer who presents to the hospital complaining of worsening back pain over the last 10 days. Intractable back pain T12 compression Fracture CT scan as reported, 75% loss of T12 vertebrae Oxycodone as needed for pain Plan for IR kyphoplasty today repeat CT scan before and after the procedure to do physical therapy Hypercalcemia Corrected calcium of around 12 mildly symptomatic To check PTH Likely secondary to underlying cancer, inactivity and dehydration Start IV fluid for now Anemia, acute on chronic Hemoglobin Stable around 9.3 Likely dilution inpatient, chronically could be secondary to cancer of chronic loss To check occult blood Monitor CBC UTI Urine growing gram-negative rods continue ceftriaxone pending final sensitivity metastatic breast cancer Chest wall mass Not on chemotherapy at this point Oncology following in [facility] hypertension Elevated blood pressure readings home Will continue to monitor DVT PPX SCDs,
[2020-10-15] MEDS: iohexoL 300 MG/ML 50 ML INFUS..BTL IV (13:41)
[2020-10-15] MEDS: Lidocaine HCl 1 % MPF 5 ML VIAL SUBCUT (13:42)
[2020-10-15] MEDS: oxyCODONE HCl Immed Release 5 MG TABLET 10 MG PO (14:45)
--- NOTE | 2020-10-15 14:45 | MHC.CM.PN ---
Spoke with pt. Very concerned about insurance, Explained that call out to Kay at [facility]([phone]). Concerned about possible rehab and payment
--- NOTE | 2020-10-15 14:48 | MHC.CM.PN ---
Per Kay at [facility]< pt does not have insurance coverage for rehab or home services. Called Emergency care notification for [place] at her request ([phone]) and reported patients [place] [facility] in [place], so CM has not explained above to pt. PCP Bashir Rivera.
[2020-10-15] MEDS: Ketorolac Tromethamine 15 MG/ML VIAL IVPUSH (15:43)
[2020-10-16 03:08] VITALS: BP 147/70; PULSE 81; RESP 16; TEMP 36.1; O2SAT 98
[2020-10-16] MEDS: Morphine Sulfate 2 MG/ML CARTRIDGE IVPUSH ×2 (05:50→10:39)
[2020-10-16] MEDS: oxyCODONE HCl Immed Release 5 MG TABLET PO (07:26)
[2020-10-16 07:39] VITALS: BP 160/67; PULSE 91; RESP 16; TEMP 36.3; O2SAT 99
[2020-10-16 10:39] VITALS: RESP 18
[2020-10-16] MEDS: Lidocaine 4 % Patch ADH..PATCH 1 PATCH TRANSDERMA (10:39)
[2020-10-16 10:54] LABS: Anion Gap 16 (12-20); Blood Urea Nitrogen 24 mg/dL (9-16); Calcium 10.7 mg/dL (8.4-10.2); Carbon Dioxide 20 mmol/L (22-29); Chloride 109 mmol/L (96-108); Creatinine Clr Calc Pharmacy 33.8; Estimated Glomerular Filt Rate 47; Glucose Random 140 mg/dL (60-115); Potassium 4.6 mmol/l (3.3-5.1); Sodium 140 mmol/L (135-145)
--- NOTE | 2020-10-16 11:12 | HO.PM.IMPN ---
Subjective Subjective Date of Service: 10/16/20 Interval History: the patient was seen and evaluated this morning Laying in bed, still complaining of significant amount of pain, no significant improvement after the procedure Denies any fever, chills or shortness of breath No reported other overnight events. Systemic review: No fever, chills , feels generalized weakness No chest pain, palpitation No shortness of breath or coughing No abdominal pain, nausea or vomiting lower back pain No urinary symptoms Physical Exam Vital Signs: Vital Signs: Last Vital Signs Temp 97.4 F 10/16/20 07:39 Pulse 91 10/16/20 07:39 Resp 18 10/16/20 10:39 BP 160/67 H 10/16/20 07:39 Pulse Ox 99 10/16/20 07:39 Body Mass Index 19.9 Objective Data Current Medications Generic Name Dose Route Start Last Admin Trade Name Freq PRN Reason Stop Dose Admin Acetaminophen 650 mg 10/13/20 19:10 10/14/20 07:50 Acetaminophen 325 Mg Tablet PO 650 mg Q6H PRN Administration Pain, Mild (Pain Scale 1-3) Acetaminophen 650 mg 10/15/20 12:53 Acetaminophen 325 Mg Tablet PO ONCE PRN Pain, Mild (Pain Scale 1-3) Ceftriaxone Sodium 1 gm/ 50 mls @ 100 mls/hr 10/14/20 13:00 10/15/20 14:51 Sodium Chloride IV Not Given Q24H [facility] Potassium Chloride/Sodium Chloride 20 meq in 1,000 mls @ 80 mls/hr 10/15/20 08:30 10/16/20 08:32 IVCONT Not Given .[id number] [facility] Lidocaine 1 patch 10/16/20 09:40 10/16/20 10:39 Lidocaine 4 % Patch Adh..Patch TRANSDERMA 1 patch DAILY [facility] Administration Protocol Morphine Sulfate 2 mg 10/14/20 12:49 10/16/20 10:39 Morphine Sulfate 2 Mg/Ml Cartridge IVPUSH 10/16/20 14:00 2 mg Q4H PRN Administration Pain, Severe (Pain Scale 7-10) Ondansetron HCl 4 mg 10/15/20 12:53 Ondansetron Hcl 4 Mg/2 Ml Vial IVPUSH ONCE PRN Nausea and Vomiting Oxycodone HCl 10 mg 10/16/20 09:37 Oxycodone Hcl Immed Release 5 Mg Tablet PO Q4H PRN Pain, Severe (Pain Scale 7-10) Pharmacy Consult 1 each 10/13/20 14:25 Consult Rx Perform Med Rec MISCELLANE ONCE PRN Consult order Sodium Chloride 3 ml 10/14/20 00:00 10/16/20 07:26 0.9 % Sodium Chloride Flush 3 Ml Syringe IVFLUSH Not Given QSHIFT [facility] Labs CBC & Chem 7: 10/15/20 06:10 10/16/20 07:13 Microbiology Microbiology Results: Microbiology 10/13/20 19:00 Urine clean catch - Clean Catch Midstream Urine Culture - Final Escherichia coli Assessment and Plan (1) Metastatic cancer: Status: Acute (2) History of lumpectomy of left breast: Status: Acute (3) Breast CA: Status: Acute (4) Intractable back pain: Status: Acute (5) T12 compression fracture: Status: Acute Assessment and Plan: a 75 years old lady with past medical history of breast cancer who presents to the hospital complaining of worsening back pain over the last 10 days. Intractable back pain T12 compression Fracture CT scan as reported, 75% loss of T12 vertebrae Oxycodone as needed for pain post kyphoplasty physical therapy evaluation, will need placement at rehab after discharge Hypercalcemia Likely secondary to underlying cancer, inactivity and dehydration Corrected calcium of around 11.6 pending PTH continue IV fluid for now Will consult Nephrology for the need of Bisphosphonate Anemia, acute on chronic Hemoglobin Stable around 9.3 Likely dilution inpatient, chronically could be secondary to cancer of chronic loss To check occult blood Monitor CBC UTI Urine growing sensitive E coli continue ceftriaxone pending final sensitivity metastatic breast cancer Chest wall mass Not on chemotherapy at this point Oncology following in [facility] hypertension Elevated blood pressure readings home Will continue to monitor DVT PPX SCDs,
[2020-10-16 11:45] VITALS: BP 118/70; PULSE 102; RESP 16; TEMP 36.6; O2SAT 95
--- NOTE | 2020-10-16 11:57 | MHC.CM.PN ---
NURSE RETORT SETTER NOTE ELECTRONIC MEDICAL RECORD REVIEWED ALONG WITH CASE DISCUSSED WITH STAFF NURSE AND MEETING WITH PATIENT , SHE REPORTED THAT SHE IS NOT FEELING ANY BETTER AFTER HAVING THE KYPHO-PLASTY ON 10/15/2020 , SHE WAS EVALUATED BY THE PHYSICAL THERAPIST AND [facility] PATIENT CONTINUES TO REPORT THAT SHE IS A AND EWAS TOLD THEY WOULD COVER EVERYTHING , I ASKED IF SHE HAD MEDICARE OR OTHER CUSTODIAL CARE INSURANCE AND SHE DOES NOT (SHE DOES NOT NEED IT SHE IS A ) I ASKED IF SHE THUGHT SHE MIGHT BE ELIGEABLE FOR [employer] AND SHE REPORTED NO. BARRIER - WHETHER HER VA INSURANCE PLAN WILL COVER FOR SHORT TERM REHAB, THE [facility] IS CURRENTLY CLOSED FOR WEEKEND TO TALK WITH [facility] OR [facility] DISCHARGE PLAN PHYSICAL THEAPRY IS RECOMENDING SHORT TERM REHAB ? IS WHETHER HER VA PLAN PROVIDES THIS OR HOME CARE SERVICES
[2020-10-16] MEDS: Acetaminophen 325 MG TABLET 650 MG PO (12:05)
[2020-10-16] MEDS: oxyCODONE HCl Immed Release 5 MG TABLET 10 MG PO ×3 (12:05→22:04)
--- NOTE | 2020-10-16 13:05 | PM.PNNEP ---
Subjective Subjective Date of Service: 10/16/20 Interval history: Patient seen and examined consult dictated Physical Exam Vital Signs: Vital Signs: Last Vital Signs Temp 97.9 F 10/16/20 11:45 Pulse 102 H 10/16/20 11:45 Resp 16 10/16/20 11:45 BP 118/70 10/16/20 11:45 Pulse Ox 95 10/16/20 11:45 Body Mass Index 19.9 Assessment & Plan Assessment and plan (1) MARS (acute kidney injury): Status: Acute (2) Hypercalcemia: Status: Acute (3) Metabolic acidosis: Status: Acute Assessment and Plan: MARS due to renal hypoperfusion hypercalcemia can cause nephrogenic DI elevated serum calcium in a patient with metastatic breast CA REC iPTH serum immunofixation PTH rp vitamin d level follow kidney function and electrolytes Thank you Time Spent With Patient Time: Total time spent is greater than 50% in coordination of care (as documented) at patient's floor/unit and/or counseling patient:
[2020-10-16] MEDS: cefTRIAXone sodium 1 GM in 0.9 % Sodium Chloride 50 ML IV (13:36)
[2020-10-16 14:30] LABS: Vitamin D 25-OH Total 38.1 ng/mL (>30)
--- NOTE | 2020-10-16 14:56 | MHC.CM.PN ---
NURSE PROPERTY ASSISTANT NOTE [facility] IS CLOSED TO NEW ADMISSIONS AT THIS TIME , REFERRAL SENT TO [facility]
[2020-10-16 15:21] VITALS: BP 100/61; BP 119/67; PULSE 110; RESP 19; TEMP 36.2; O2SAT 97
[2020-10-16 19:32] VITALS: BP 118/54; PULSE 100; RESP 19; TEMP 36.7; O2SAT 98
[2020-10-17] VITALS: BP 118/68; PULSE 101; RESP 18; TEMP 36.7; O2SAT 98
[2020-10-17 07:29] VITALS: BP 187/78; RESP 24; TEMP 36.6; O2SAT 99
[2020-10-17 07:40] LABS: Hemoglobin 8.8 g/dl (12.0-16.0); Mean Corpuscular HGB Conc 31.4 g/dl (31.0-35.0); Mean Corpuscular Hemoglobin 28.4 pg (27.0-33.0); Mean Corpuscular Volume 90.3 fL (80-98); Mean Platelet Volume 9.5 fL (9.4-12.3); Platelet Count 253 X10*3/uL (160-400); Red Cell Distribution Width 14.8 % (11.0-16.0); White Blood Count 10.7 X10*3/uL (4.8-10.8)
[2020-10-17] MEDS: Lidocaine 4 % Patch ADH..PATCH 1 PATCH TRANSDERMA (08:20)
[2020-10-17] MEDS: oxyCODONE HCl Immed Release 5 MG TABLET 10 MG PO ×3 (08:38→21:35)
[2020-10-17] MEDS: Acetaminophen 325 MG TABLET 650 MG PO ×3 (08:38→21:35)
--- NOTE | 2020-10-17 09:28 | MHC.CM.PN ---
NURSE RESERVATIONS MANAGER NOTE ELECTRONIC MEDICAL RECORD REVIEWED ALONG WITH CASE DISCUSSED WITH STAFF NURSE , MET WITH PATIENT TODAY SHE REPORTED STILL NOT FEELING MUCH BETTER, SHE IS NOT FEELING MUCH BETTER, SHE CONTINUES ON IV ANTIBIOTICS, RECEIVED POTASSIUM SUPPLEMENT IV ON 10/15 AND 09/2920 PO OXYCODONE PRN. BARRIERS TO DISCHARGE 1. PER CO WORKER WHO SPOKE WITH THE [place] [facility] NURSE PATIENT HAS BARE MINIMUM VA INSURANCE, WHEN SPEAKING TO PATIENT SHE HAS BEEN TOD BY MANY HOSPITALS AND PHYSICIANS THAT SHE IS FULLY COVERED AND ALSO HAD CHEMO. SHE IS NOT INTERESTED IN TAKING [place] MEDICARE APPLICATION OR CHECKING FOR [facility] [employer] ELIGIBILITY SHE STRONGLY FEELS THAT SHE IS COVERED, 2 AFTER DISCUSSION WITH PATIENT AND WITH HER PERMISSION I REFERRED TO TWO [place] [facility] IN THIS AREA 1. [facility] (THEY CURRENTLY ARE NOT TAKING IN ANY NEW ADMISSION) 2, [facility] [place] PER LIAISON ERASMO Anne, THEY CAN OFFER PATIENT PATIENT A BED PENDING APPROVAL FROM THE [place]. THEY WILL CALL ANABELLA LISA AT THE [place] ON SUNDAY TO CHECK IF SHE IS SERVICE CONNECTED/CHECK -BENEFITS THENGO FOR INSURANCE AUTHORIZATION IF SHE HAS BENEFITS 3. IF ACCEPTED WITH BENEFITS SHE FELIZ NEED COPY F [facility] CARE PROXY AND RAPID COVID -19 TEST /RESULTS
[2020-10-17 09:37] LABS: Anion Gap 12 (12-20); Blood Urea Nitrogen 19 mg/dL (9-16); Carbon Dioxide 23 mmol/L (22-29); Chloride 107 mmol/L (96-108); Creatinine Clr Calc Pharmacy 37.9; Estimated Glomerular Filt Rate 54; Glucose Random 100 mg/dL (60-115); Potassium 4.4 mmol/l (3.3-5.1); Sodium 138 mmol/L (135-145)
[2020-10-17 09:50] LABS: Albumin Level 2.8 g/dL (3.5-5.0)
[2020-10-17] MEDS: 0.9 % Sodium Chloride 1,000 ML 80 ML IVCONT (10:06)
--- NOTE | 2020-10-17 11:13 | P.PNIM_ITS ---
Subjective Subjective Date of Service: 10/17/20 Interval History: the patient was seen and evaluated this morning still complaining of significant amount of pain in her back, requiring more oxycodone Denies any fever, chills or shortness of breath No reported other overnight events. Systemic review: No fever, chills , feels generalized weakness No chest pain, palpitation No shortness of breath or coughing No abdominal pain, nausea or vomiting lower back pain No urinary symptoms Physical Exam Vital Signs: Vital Signs: Last Vital Signs Temp 97.8 F 10/17/20 07:29 Pulse 101 H 10/17/20 00:00 Resp 24 H 10/17/20 07:29 BP 187/78 H 10/17/20 07:29 Pulse Ox 99 10/17/20 07:29 Body Mass Index 19.9 Constitutional : Alert, oriented, not in distress Neck : Normal inspection, Supple Cardiovascular : RRR, S1 S2, no lower extremity edema Respiratory : Good bilateral air entry, no crackles, wheezes or rhonchi Gastrointestinal: soft, lax, Normal bowel sounds, Non tender Skin : Warm/Dry, large chest wall mass Covered with dressing Neurological : Alert & oriented x3, No focal deficit Objective Data Current Medications Generic Name Dose Route Start Last Admin Trade Name Freq PRN Reason Stop Dose Admin Acetaminophen 650 mg 10/13/20 19:10 10/17/20 08:38 Acetaminophen 325 Mg Tablet PO 650 mg Q6H PRN Administration Pain, Mild (Pain Scale 1-3) Acetaminophen 650 mg 10/15/20 12:53 Acetaminophen 325 Mg Tablet PO ONCE PRN Pain, Mild (Pain Scale 1-3) Ceftriaxone Sodium 1 gm/ 50 mls @ 100 mls/hr 10/14/20 13:00 10/16/20 14:32 Sodium Chloride IV Infused Q24H [facility] Sodium Chloride 1,000 mls @ 80 mls/hr 10/17/20 09:45 10/17/20 10:42 Ns IVCONT 0 mls/hr .[id number] [facility] Pamidronate Disodium 60 mg/ 260 mls @ 130 mls/hr 10/17/20 10:00 10/17/20 10:42 Sodium Chloride IV 10/17/20 11:59 130 mls/hr ONCE ONE Administration Lidocaine 1 patch 10/16/20 09:40 10/17/20 08:20 Lidocaine 4 % Patch Adh..Patch TRANSDERMA 1 patch DAILY [facility] Administration Protocol Ondansetron HCl 4 mg 10/15/20 12:53 Ondansetron Hcl 4 Mg/2 Ml Vial IVPUSH ONCE PRN Nausea and Vomiting Oxycodone HCl 10 mg 10/16/20 09:37 10/17/20 08:38 Oxycodone Hcl Immed Release 5 Mg Tablet PO 10 mg Q4H PRN Administration Pain, Severe (Pain Scale 7-10) Pharmacy Consult 1 each 10/13/20 14:25 Consult Rx Perform Med Rec MISCELLANE ONCE PRN Consult order Sodium Chloride 3 ml 10/14/20 00:00 10/17/20 08:27 0.9 % Sodium Chloride Flush 3 Ml Syringe IVFLUSH Not Given [facility] Labs CBC & Chem 7: 10/17/20 07:19 10/17/20 08:45 Microbiology Microbiology Results: Microbiology 10/13/20 19:00 Urine clean catch - Clean Catch Midstream Urine Culture - Final Escherichia coli Assessment and Plan (1) Metastatic cancer: Status: Acute (2) History of lumpectomy of left breast: Status: Acute (3) Breast CA: Status: Acute (4) Intractable back pain: Status: Acute (5) T12 compression fracture: Status: Acute Assessment and Plan: a 75 years old lady with past medical history of breast cancer who presents to the hospital complaining of worsening back pain over the last 10 days. Intractable back pain T12 compression Fracture CT scan as reported, 75% loss of T12 vertebrae Increase Oxycodone as needed for pain post kyphoplasty, the pain did not improve after the procedure and she still requiring pain meds physical therapy evaluation, will need placement at rehab after discharge Hypercalcemia Likely secondary to underlying cancer, inactivity and dehydration Corrected calcium of around 12 today pending PTH continue IV fluid for now to give a dose of bisphosphonate today Nephrology input appreciated, check immunofixation Anemia, acute on chronic Hemoglobin Stable around 9 Likely dilution inpatient, chronically could be secondary to cancer of chronic loss Monitor CBC UTI Urine growing sensitive E coli discontinue ceftriaxone To use Ceftin for 2 more days metastatic breast cancer Chest wall mass Not on chemotherapy at this point Oncology following in [facility] hypertension readings lecture weight between normal and high Not on any home medications Will continue to monitor DVT PPX SCDs,
--- NOTE | 2020-10-17 12:12 | PM.PNNEP ---
Subjective Subjective Date of Service: 10/17/20 Interval history: seen and examined complains of lack of sleep denies sob, nausea, vomiting or pain Physical Exam Vital Signs: Vital Signs: Last Vital Signs Temp 97.8 F 10/17/20 07:29 Pulse 101 H 10/17/20 00:00 Resp 24 H 10/17/20 07:29 BP 187/78 H 10/17/20 07:29 Pulse Ox 99 10/17/20 07:29 Body Mass Index 19.9 Const: General: no acute distress Orientation/consciousness: oriented to person, oriented to place and oriented to time HENMT: Head: Yes normocephalic and Yes atraumatic Neck: Neck: Yes supple Resp: Auscultation: clear to auscultation bilaterally Cardio: Heart sounds: S1 normal heart sound present and S2 normal heart sound present GI: Palpation (GI): Soft to palpation and nontender Neuro: General: oriented to person, oriented to place and oriented to time Extrem: General: Yes no pedal edema Assessment & Plan Assessment and plan (1) MARS (acute kidney injury): Status: Acute (2) Hypercalcemia: Status: Acute (3) Metabolic acidosis: Status: Acute Assessment and Plan: kidney function better calcium worse MARS due to renal hypoperfusion hypercalcemia can cause nephrogenic DI elevated serum calcium in a patient with metastatic breast CA work up ordered (iPTH, serum immunofixation, PTH rp, vitamin d level) REC agree with pamidronate IVF NS follow kidney function and electrolytes Time Spent With Patient Time: Total time spent is greater than 50% in coordination of care (as documented) at patient's floor/unit and/or counseling patient:
[2020-10-17 15:27] VITALS: BP 159/70; PULSE 97; RESP 18; TEMP 36.6; O2SAT 98
[2020-10-17 19:17] VITALS: BP 138/57; PULSE 93; RESP 19; TEMP 36.2; O2SAT 99
[2020-10-17] MEDS: 0.9 % Sodium Chloride Flush 3 ML SYRINGE IVFLUSH (21:35)
[2020-10-17 23:18] VITALS: BP 118/76; PULSE 98; RESP 18; TEMP 37; O2SAT 98
[2020-10-18] MEDS: 0.9 % Sodium Chloride 1,000 ML 80 ML IVCONT ×2 (00:09→10:53)
[2020-10-18 04:21] VITALS: BP 141/68; PULSE 84; RESP 18; TEMP 37; O2SAT 98
[2020-10-18] MEDS: Acetaminophen 325 MG TABLET 650 MG PO (04:29)
[2020-10-18] MEDS: oxyCODONE HCl Immed Release 5 MG TABLET 10 MG PO ×3 (04:30→15:48)
[2020-10-18 07:07] LABS: Anion Gap 11 (12-20); Blood Urea Nitrogen 15 mg/dL (9-16); Calcium 10.5 mg/dL (8.4-10.2); Carbon Dioxide 22 mmol/L (22-29); Chloride 109 mmol/L (96-108); Creatinine Clr Calc Pharmacy 43.1; Estimated Glomerular Filt Rate > 60; Glucose Random 96 mg/dL (60-115); Potassium 4.4 mmol/l (3.3-5.1); Sodium 138 mmol/L (135-145)
[2020-10-18 08:00] VITALS: BP 179/87; PULSE 100; RESP 19; TEMP 37.1; O2SAT 98
[2020-10-18] MEDS: Lidocaine 4 % Patch ADH..PATCH 1 PATCH TRANSDERMA (09:10)
--- NOTE | 2020-10-18 11:31 | P.PNIM_ITS ---
Subjective Subjective Date of Service: 10/18/20 Interval History: Patient seen and examined at bedside patient is reporting back pain Review of Systems No fever, chills Lower back pain, general weakness No chest pain, palpitation No shortness of breath or coughing No abdominal pain, nausea or vomiting No urinary symptoms No any rash or wounds Constitutional Constitutional: Reports weakness Cardiovascular Cardiovascular: Denies dyspnea Respiratory Respiratory: Denies dyspnea Gastrointestinal Gastrointestinal: Denies nausea and Denies vomiting Musculoskeletal Musculoskeletal: Reports back pain Neurologic Neurologic: Reports weakness Physical Exam Vital Signs: Vital Signs: Last Vital Signs Temp 98.8 F 10/18/20 08:00 Pulse 100 10/18/20 08:00 Resp 19 10/18/20 08:00 BP 179/87 H 10/18/20 08:00 Pulse Ox 98 10/18/20 08:00 Body Mass Index 19.9 Const: General: no acute distress Orientation/consciousness: oriented to person, oriented to place and oriented to time HENMT: Head: Yes normocephalic and Yes atraumatic Neck: Neck: Yes supple Resp: Auscultation: clear to auscultation bilaterally Cardio: Heart sounds: S1 normal heart sound present and S2 normal heart sound present GI: Palpation (GI): Soft to palpation and nontender Neuro: General: oriented to person, oriented to place and oriented to time Extrem: General: Yes no pedal edema Objective Data Current Medications Generic Name Dose Route Start Last Admin Trade Name Freq PRN Reason Stop Dose Admin Acetaminophen 650 mg 10/13/20 19:10 10/18/20 04:29 Acetaminophen 325 Mg Tablet PO 650 mg Q6H PRN Administration Pain, Mild (Pain Scale 1-3) Acetaminophen 650 mg 10/15/20 12:53 Acetaminophen 325 Mg Tablet PO ONCE PRN Pain, Mild (Pain Scale 1-3) Cefuroxime Axetil 250 mg 10/17/20 12:00 10/18/20 00:19 Cefuroxime Axetil 250 Mg Tablet PO 10/19/20 00:01 250 mg Q12H [facility] Administration Sodium Chloride 1,000 mls @ 80 mls/hr 10/17/20 09:45 10/18/20 10:53 Ns IVCONT 80 mls/hr .[id number] [facility] Administration Lidocaine 1 patch 10/16/20 09:40 10/18/20 09:10 Lidocaine 4 % Patch Adh..Patch TRANSDERMA 1 patch DAILY [facility] Administration Protocol Ondansetron HCl 4 mg 10/15/20 12:53 Ondansetron Hcl 4 Mg/2 Ml Vial IVPUSH ONCE PRN Nausea and Vomiting Oxycodone HCl 10 mg 10/16/20 09:37 10/18/20 04:30 Oxycodone Hcl Immed Release 5 Mg Tablet PO 10 mg Q4H PRN Administration Pain, Severe (Pain Scale 7-10) Pharmacy Consult 1 each 10/13/20 14:25 Consult Rx Perform Med Rec MISCELLANE ONCE PRN Consult order Sodium Chloride 3 ml 10/14/20 00:00 10/18/20 09:10 0.9 % Sodium Chloride Flush 3 Ml Syringe IVFLUSH Not Given QSHIFT [facility] Labs CBC & Chem 7: 10/17/20 07:19 10/18/20 06:11 Microbiology Microbiology Results: Microbiology 10/13/20 19:00 Urine clean catch - Clean Catch Midstream Urine Culture - Final Escherichia coli Assessment and Plan (1) Metastatic cancer: Status: Acute (2) History of lumpectomy of left breast: Status: Acute (3) Breast CA: Status: Acute (4) Intractable back pain: Status: Acute (5) T12 compression fracture: Status: Acute Assessment and Plan: 75 years old lady with past medical history of breast cancer who presents to the hospital complaining of worsening back pain over the last 10 days. Intractable back pain T12 compression Fracture CT scan as reported, 75% loss of T12 vertebrae Oxycodone as needed for pain post kyphoplasty physical therapy evaluation, will need placement at rehab after discharge Hypercalcemia Likely secondary to underlying cancer, inactivity and dehydration calcium and vitamin-D supplements stopped calcium improving pending PTH received IV fluids and IV bisphosphonate Anemia, acute on chronic Hemoglobin Stable around 9.3 Likely dilution inpatient, chronically could be secondary to cancer of chronic loss occult blood pending Monitor CBC UTI Urine growing sensitive E coli Continue ceftriaxone Metastatic breast cancer Chest wall mass Not on chemotherapy at this point Oncology following in [facility] hypertension Elevated blood pressure readings home monitor blood pressure DVT PPX SCDs,
[2020-10-18 11:51] VITALS: BP 145/72; PULSE 118; RESP 20; TEMP 37.3; O2SAT 100
--- NOTE | 2020-10-18 14:35 | PM.PNNEP ---
Subjective Subjective Date of Service: 10/18/20 Interval history: Patient seen and examined at bedside patient still reporting back pain Physical Exam Vital Signs: Vital Signs: Last Vital Signs Temp 99.2 F 10/18/20 11:51 Pulse 118 H 10/18/20 11:51 Resp 20 10/18/20 11:51 BP 145/72 H 10/18/20 11:51 Pulse Ox 100 10/18/20 11:51 Body Mass Index 19.9 Const: General: no acute distress Orientation/consciousness: oriented to person, oriented to place and oriented to time HENMT: Head: Yes normocephalic and Yes atraumatic Neck: Neck: Yes supple Resp: Auscultation: clear to auscultation bilaterally Cardio: Heart sounds: S1 normal heart sound present and S2 normal heart sound present GI: Palpation (GI): Soft to palpation and nontender Neuro: General: oriented to person, oriented to place and oriented to time Extrem: General: Yes no pedal edema Assessment & Plan Assessment and plan (1) MARS (acute kidney injury): Status: Acute (2) Hypercalcemia: Status: Acute (3) Metabolic acidosis: Status: Acute Assessment and Plan: MARS: resolved HyperCA: SCa decr 10.5, s/p palmidronate (10/17) andIVF; note Salb low so actual Ca iss higher than 10.5; w/u inprogress ( sero pending) ..Cancer assoc hyperCa vs immobization and PO Ca playing a role NAGMA: d/t IVF REC: d/c IVF and track Ca; avoid Ca suppl and avoid vit D; check sero ( PTH SIFixation, PTHrp, vit D levels ..etc..); If Ca remains < 11.0 ok to d/c Time Spent With Patient Time: Total time spent is greater than 50% in coordination of care (as documented) at patient's floor/unit and/or counseling patient:
--- NOTE | 2020-10-18 15:56 | MHC.CM.PN ---
Met with pt this am. Pt insistent that her VA benefits will cover everything, including rehab. Call to Kay at [facility] for confirmation of services covered. Pt states she wants to go home. Attempted to explain to pt that it is not safe for her to go home. Pt lives alone in elderly housing. States she was to start home services this week ?identification technician. Pt becoming angry with CM. Refusing to share sonGino's contact information. Pt does not have a HCP on file. Completed a [facility] here at [facility]. Refuses to understand that HCP and MOLST are not the same. Will try to meet with pt later.
--- NOTE | 2020-10-18 16:01 | MHC.CM.PN ---
Spoke with Kay Murray from the [facility]. Pt insurance DOES NOT cover STR. It will only cover home rehab, but need approval from Pt's MD at the [facility], Elyse Rodríguez. Pt does not seem safe to be D/C home. Whe CM went in to speak with patient, she was rocking in bed and screaming in pain. Unable to discuss d/c planning secondary to uncontrolled pain. RN aware and came in to evaluate pt. Perry text to Dr. Fritz by this CM to come to evaluate pain, re: pain and mentation. Will see pt. Will address consulting finances in am to petition for emergency elderly waiver for Medicaid to fund STR placement. Will continue to follow for d/c needs.
[2020-10-18 16:22] LABS: PTHI 3 pg/mL (14-64)
[2020-10-18] MEDS: Omeprazole 20 MG CAPSULE.DR PO (17:19)
[2020-10-18] MEDS: 0.9 % Sodium Chloride 1,000 ML 100 ML IVCONT (17:19)
[2020-10-18] MEDS: polyethylene glycoL 3350 17 GM POWD.PACK PO (17:19)
[2020-10-18] MEDS: Ibuprofen 600 MG TABLET PO (17:19)
--- NOTE | 2020-10-18 17:46 | CONS_ITS ---
DATE OF SERVICE: 10/16/2020 HISTORY OF PRESENT ILLNESS: I was asked to assist in management of this 75-year-old patient who has a history of breast cancer, who presented to the hospital with back pain and was noted to have an elevated serum calcium and serum creatinine. The patient denies the use of calcium supplements. She is known to have a history of metastatic breast cancer. She denies any chest pain or shortness of breath. There is no report of nausea, vomiting, or diarrhea. She apparently has had back pain over the last 10 days. She had a CT scan which showed 75% loss of T12 vertebrae. PAST MEDICAL HISTORY: Remarkable for breast cancer. MEDICATIONS: As inpatient were reviewed and included ceftriaxone and morphine. ALLERGIES: SHE IS ALLERGIC TO CODEINE AND PENICILLIN. SOCIAL HISTORY: Does not smoke. FAMILY HISTORY: Negative for kidney disease. REVIEW OF SYSTEMS: A 10-point review of system negative except as in history of present illness. PHYSICAL EXAMINATION: VITAL SIGNS: Blood pressure is 118/70, heart rate 102, respiratory rate 16, temperature afebrile. CONSTITUTIONAL: Looks stated age. No acute distress. NEUROLOGIC: Alert, awake. HEENT: Head is atraumatic, normocephalic . NECK: Supple. LUNGS: Good air entry bilaterally. CARDIOVASCULAR: S1, S2. No rub. ABDOMEN: Soft, nontender. EXTREMITIES: No peripheral edema. LABORATORY DATA: Showed a sodium 140, potassium 4.3, chloride 109, CO2 of 20, BUN 24, creatinine 1.12. Creatinine on admission was 1.41. Calcium today 10.7, calcium on admission was 12.1. IMPRESSION AND PLAN: 1. Acute kidney injury. 2. Hypercalcemia. 3. Metabolic acidosis. This is a patient who presents with acute kidney injury in setting of hypercalcemia, which can cause nephrogenic diabetes insipidus resulting in volume depletion and renal hypoperfusion. She has elevated serum calcium against a backdrop of metastatic breast cancer and would consider first malignant etiology and paraneoplastic syndrome. We will check her intact PTH, PTHRP, serum immunofixation, vitamin D 25 level. Follow closely her kidney function and electrolytes. She does not have any indication for the time being for bisphosphonate. We will continue follow closely along with the medical team. Thank you for allowing me to participate in the care of this patient. MD DAYANNA Bryant/MODL / [id number]
[2020-10-18] MEDS: oxyCODONE HCl Immed Release 5 MG TABLET PO (21:10)
[2020-10-19] VITALS: BP 166/75; PULSE 102; RESP 19; TEMP 36.7; O2SAT 96
[2020-10-19] MEDS: 0.9 % Sodium Chloride 1,000 ML 100 ML IVCONT (02:30)
[2020-10-19] MEDS: Omeprazole 20 MG CAPSULE.DR PO (06:09)
[2020-10-19 07:20] VITALS: BP 190/87; PULSE 109; RESP 18; TEMP 36.6; O2SAT 99
--- NOTE | 2020-10-19 09:22 | PC.NURSE ---
PT SON PHONE NUMBER - jeff - [phone] BOYFRIEND BEBE -[phone]
[2020-10-19 09:31] LABS: MANUAL DIFF FLAG NO
[2020-10-19 09:35] LABS: Basophils Absolute Auto 0.1 X10*3/uL (0.0-0.2); Basophils Percent Auto 0.5 % (0-2); Eosinophils Absolute Auto 0.1 X10*3/uL (0.0-0.4); Eosinophils Percent Auto 0.7 % (0-4); Hematocrit 28.4 % (37-47); Hemoglobin 9.1 g/dl (12.0-16.0); Lymphocytes Absolute Auto 0.8 X10*3/uL (1.2-4.9); Lymphocytes Percent Auto 8.3 % (20-40); Mean Corpuscular Hemoglobin 28.8 pg (27.0-33.0); Mean Corpuscular Volume 89.9 fL (80-98); Mean Platelet Volume 9.4 fL (9.4-12.3); Monocytes Absolute Auto 1.1 X10*3/uL (0.1-1.2); Monocytes Percent Auto 10.9 % (2-11); Neutrophils Absolute Auto 7.7 X10*3/uL (2.0-8.3); Neutrophils Percent Auto 77.6 % (45-73); Platelet Count 221 X10*3/uL (160-400); Red Blood Count 3.16 X10*6/uL (4.20-5.50); Red Cell Distribution Width 14.6 % (11.0-16.0)
[2020-10-19 09:39] VITALS: BP 161/56
[2020-10-19 10:06] LABS: Anion Gap 15 (12-20); Blood Urea Nitrogen 15 mg/dL (9-16); Carbon Dioxide 19 mmol/L (22-29); Chloride 109 mmol/L (96-108); Creatinine Clr Calc Pharmacy 37.1; Estimated Glomerular Filt Rate 53; Glucose Random 90 mg/dL (60-115); Potassium 4.3 mmol/l (3.3-5.1); Sodium 139 mmol/L (135-145)
[2020-10-19 10:26] LABS: Calcium 9.2 mg/dL (8.4-10.2)
--- NOTE | 2020-10-19 10:42 | P.PNNP_ITS ---
Subjective Subjective Date of Service: 10/19/20 Interval history: Patient seen and examined at bedside patient still reporting back pain and anxious Physical Exam Vital Signs: Vital Signs: Last Vital Signs Temp 97.9 F 10/19/20 07:20 Pulse 109 H 10/19/20 07:20 Resp 18 10/19/20 07:20 BP 161/56 H 10/19/20 09:39 Pulse Ox 99 10/19/20 07:20 Body Mass Index 19.9 Const: General: no acute distress Orientation/consciousness: oriented to person, oriented to place and oriented to time HENMT: Head: Yes normocephalic and Yes atraumatic Neck: Neck: Yes supple Resp: Auscultation: clear to auscultation bilaterally Cardio: Heart sounds: S1 normal heart sound present and S2 normal heart sound present GI: Palpation (GI): Soft to palpation and nontender Neuro: General: oriented to person, oriented to place and oriented to time Extrem: General: Yes no pedal edema Assessment & Plan Assessment and plan (1) MARS (acute kidney injury): Status: Acute (2) Hypercalcemia: Status: Acute (3) Metabolic acidosis: Status: Acute Assessment and Plan: MARS: resolved HyperCA: SCa decr 9.2; , s/p palmidronate (10/17) and IVF; note Salb low so actual Ca iss higher than 9.2; w/u inprogress ( sero pending) ..Cancer assoc hyperCa vs immobization and PO Ca playing a role NAGMA: d/t IVF REC: ok to d/c from reanl standpoint; avoid Ca suppl and avoid vit D; check sero ( PTH SIFixation, PTHrp, vit D levels ..etc..); needs outpt Ca level in 1 wk; I will arrange f/u with me as outpt Time Spent With Patient Time: Total time spent is greater than 50% in coordination of care (as imani busby) at patient's floor/unit and/or counseling patient:
[2020-10-19] MEDS: Ibuprofen 600 MG TABLET PO (11:48)
[2020-10-19 13:05] LABS: COVID-19 Test Negative (Negative)
--- NOTE | 2020-10-19 13:08 | MHC.CM.PN ---
Met with pt. Much clearer today. Very hesitant to go to rehab. Will not allow CM to speak with Adry Lazaro or with Son, Gino. LAYLA Wooten and Dr. Fritz spoke with pt, as well as this case work aide. PT attempted to get pt OOB with walker. Pt unable to ambulate with walker. Realizes she needs PT. Discovered that pt has Medicare. Medicare card scanned by Registration. IMM reviewed and signed. HCP reviewed and completed. Son, Gino Davenport, is her proxy. Sally at [facility] accepting pt. Rapid COVID drawn. [facility] booked for 2pm
--- NOTE | 2020-10-19 13:17 | P.DS_ITS ---
DS: Providers Provider Date of admission: 10/13/20 16:26 Primary care physician: Unknown Physician Consults: 10/13/20 16:27 Consult to Anesthesiology Routine Consulting Provider: Ashtyn Gallardo Reason for consultation: Plan for Kyphoplasty Monday 10/15. 10/16/20 11:15 Consult to Nephrology Routine Consulting Provider: Ken Whitaker Reason for consultation: cancer related Hypercalcemia, back pain&fracture ,for bisphosphonate eval? DS: Diagnosis Discharge Diagnosis (1) MARS (acute kidney injury): Status: Acute (2) Hypercalcemia: Status: Acute (3) Metabolic acidosis: Status: Acute DS: Medications Discharge Medications Home Medications: Previous Rx's Medication Instructions Recorded acetaminophen 650 mg PO Q6H PRN #20 tab 10/19/20 lidocaine [Lidocaine Pain Relief] 1 patch TRANSDERMAL DAILY #20 ea 10/19/20 oxycodone 5 mg PO Q4H PRN #20 tab 10/19/20 polyethylene glycol 3350 17 g PO DAILY #20 ea 10/19/20 DS: Summary Hospital Course Hospital Course: HPI from admissions 75 years old lady with past medical history of breast cancer who presents to the hospital complaining of worsening back pain over the last 10 days. The patient report having lower extremity weakness for couple of months at this point. She was evaluated in the hospital almost [address] scan showing fracture in T12 with losing of 75% of the height of the vertebra. She was discharged home on pain medication but were not helping as her pain continued to get worse and she was a not able to ambulate around. Discussed with IR, plan for kyphoplasty on Sunday ,Admitted for pain control And kyphoplasty hospital course 75-year-old female with metastatic breast cancer admitted with intractable back pain from T12 fracture secondary to metastatic disease, patient was started on pain management, IR was consulted patient underwent kyphoplasty, patient still continue to complain of pain, pain medications were adjusted, patient became more confused with increased dose of oxycodone, oxycodone dose was reduced, patient's confusion improved, pain was controlled, patient was evaluated by Physical therapy recommended short-term rehab Patient was also treated for hypercalcemia, likely secondary to metastatic disease, patient was started on IV hydration, nephrology was consulted, patient received 1 dose of pamidronate, hypercalcemia resolved calcium trended down to 9.4, patient was cleared by Nephrology, patient will have repeat BMP in 1 week patient will follow-up Nephrology Dr. Myers as outpatient patient was stable discharged to short-term rehab Time Spent with Patient Time attestation: Total time spent providing and/or coordinating discharge services: Physical Exam Vital Signs: Vital Signs: Last Vital Signs Temp 97.9 F 10/19/20 07:20 Pulse 109 H 10/19/20 07:20 Resp 18 10/19/20 07:20 BP 161/56 H 10/19/20 09:39 Pulse Ox 99 10/19/20 07:20 Body Mass Index 19.9 Const: General: no acute distress Orientation/consciousness: oriented to person, oriented to place and oriented to time HENMT: Head: Yes normocephalic and Yes atraumatic Neck: Neck: Yes supple Resp: Auscultation: clear to auscultation bilaterally Cardio: Heart sounds: S1 normal heart sound present and S2 normal heart sound present GI: Palpation (GI): Soft to palpation and nontender Neuro: General: oriented to person, oriented to place and oriented to time Extrem: General: Yes no pedal edema DS: Data Data Completed and Pending Labs on day of discharge: 10/13/20 14:25 fentaNYL citrate/PF [Sublimaze] 50 mcg IVPUSH ONCE ONE oxyCODONE HCl Immed Release [Roxicodone] 5 mg PO ONCE ONE 10/13/20 14:46 Basic Metabolic Panel Stat COVID-19 ID NOW ([facility]) Stat Complete Blood Count Auto Diff Stat Hold Lav - Possible Hematology Stat Liver Panel Stat Magnesium Stat Partial Thromboplastin Time Stat Prothrombin Time INR Stat 10/13/20 15:28 0.9 % Sodium Chloride [Ns] 1,000 ml IVCONT 999 mls/hr 10/13/20 15:46 Add Laboratory Test Stat 10/13/20 16:21 Transfer Order Routine 10/13/20 Dinner Regular Diet Urine Culture Routine 10/13/20 19:10 oxyCODONE HCl Immed Release [Roxicodone] 5 mg PO Q6H PRN 10/14/20 06:17 Basic Metabolic Panel DAILY@0600 Liver Panel Routine 10/14/20 07:09 Complete Blood Count no Diff DAILY@0600 10/14/20 12:28 cefTRIAXone sodium [Rocephin] 1 gm .ROUTE .STK-MED ONE 10/14/20 12:49 Morphine Sulfate 2 mg IVPUSH Q4H PRN 10/14/20 13:00 cefTRIAXone sodium [Rocephin] 1 gm 0.9 % Sodium Chloride [Ns] 50 ml IV Q24H 10/15/20 CT lumbar spine wo con Stat 10/15/20 06:10 Basic Metabolic Panel DAILY@0600 Complete Blood Count no Diff DAILY@0600 PTHI Routine Prothrombin Time INR DAILY@0600 10/15/20 08:00 CT thoracic spine wo con Routine 10/15/20 08:30 KCl 20 mEq in 0.9 % Sodium Chl 20 meq in 1,000 ml IVCONT 80 mls/hr 10/15/20 08:50 Add Laboratory Test Routine 10/15/20 09:47 Midazolam HCl/PF [Versed] 2 mg .ROUTE .STK-MED ONE fentaNYL citrate/PF [Sublimaze] 50 mcg .ROUTE .STK-MED ONE fentaNYL citrate/PF [Sublimaze] 50 mcg .ROUTE .STK-MED ONE fentaNYL citrate/PF [Sublimaze] 50 mcg .ROUTE .STK-MED ONE 10/15/20 09:48 Ketamine HCl/NS 50 mg IVPUSH .STK-MED ONE Ketamine HCl/NS 50 mg IVPUSH .STK-MED ONE 10/15/20 09:54 Glycopyrrolate [Robinul] 0.2 mg .ROUTE .STK-MED ONE Lidocaine HCl 2 % MPF [Xylocaine 2 % MPF] 5 ml .ROUTE .STK-MED ONE ondansetron HCL [Zofran] 4 mg .ROUTE .STK-MED ONE propofoL [Diprivan] 200 mg IVPUSH .STK-MED ONE 10/15/20 10:00 IR kyphoplasty thoracic Routine 10/15/20 10:15 ceFAZolin Sodium/Dextrose,Iso [Ancef] 2 gm in 50 ml .ROUTE As directed 10/15/20 10:52 Bupivacaine MPF 0.25 % [Sensorcaine MPF 0.25% 30 ML] 30 ml .ROUTE .STK-MED ONE Lidocaine HCl 1 % MPF [Xylocaine 1 % MPF] 5 ml .ROUTE .STK-MED ONE 10/15/20 10:53 iohexoL 300 MG/ML [Omnipaque 300 MG/ML] 50 ml IV .STK-MED ONE 10/15/20 12:53 Ketorolac Tromethamine [Toradol] 15 mg IVPUSH ONCE PRN oxyCODONE HCl Immed Release [Roxicodone] 10 mg PO ONCE PRN 10/15/20 12:54 Continuous pulse oximetry CONT Vital Signs Q1H Vital Signs Q5MIN 10/15/20 13:41 Lidocaine HCl 1 % MPF [Xylocaine 1 % MPF] 5 ml SUBCUT ONCE ONE iohexoL 300 MG/ML [Omnipaque 300 MG/ML] 50 ml IV ONCE ONE 10/15/20 13:42 Bupivacaine MPF 0.25 % [Sensorcaine MPF 0.25% 30 ML] 30 ml SUBCUT ONCE ONE 10/15/20 14:38 oxyCODONE HCl Immed Release [Roxicodone] 5 mg .ROUTE .STK-MED ONE 10/15/20 14:39 Morphine Sulfate 2 mg .ROUTE .K-MED ONE 10/15/20 Dinner Regular Diet 10/16/20 07:13 Basic Metabolic Panel DAILY@0600 10/16/20 09:37 oxyCODONE HCl Immed Release [Roxicodone] 10 mg PO Q4H PRN 10/16/20 13:24 Vitamin D 25-OH Total Routine 10/16/20 13:34 cefTRIAXone sodium [Rocephin] 1 gm .ROUTE .STK-MED ONE 10/17/20 07:19 Complete Blood Count no Diff DAILY@0600 10/17/20 08:45 Albumin Level Urgent BMP [Basic Metabolic Panel] Urgent 10/17/20 09:45 Add Laboratory Test Urgent 0.9 % Sodium Chloride [Ns] 1,000 ml IVCONT 80 mls/hr Acetaminophen [Tylenol] 650 mg PO TID 10/17/20 10:00 Pamidronate Disodium [Aredia] 60 mg 0.9 % Sodium Chloride PVC Free [NS PVC Free] 250 ml IV ONCE 10/17/20 12:00 cefUROXime axetiL [Ceftin] 250 mg PO Q12H 10/18/20 06:11 Basic Metabolic Panel DAILY@0600 10/18/20 16:15 0.9 % Sodium Chloride [Ns] 1,000 ml IVCONT 100 mls/hr 10/19/20 09:10 Basic Metabolic Panel Routine Complete Blood Count Auto Diff Routine 10/19/20 12:45 COVID-19 ID NOW ([facility]) Stat Laboratory Last Values WBC 10.0 X10*3/uL (4.8-10.8) 10/19/20 09:10 RBC 3.16 X10*6/uL (4.20-5.50) L 10/19/20 09:10 Hgb 9.1 g/dl (12.0-16.0) L 10/19/20 09:10 Hct 28.4 % (37-47) L 10/19/20 09:10 MCV 89.9 fL (80-98) 10/19/20 09:10 MCH 28.8 pg (27.0-33.0) 10/19/20 09:10 MCHC 32.0 g/dl (31.0-35.0) 10/19/20 09:10 RDW 14.6 % (11.0-16.0) 10/19/20 09:10 Plt Count 221 X10*3/uL (160-400) 10/19/20 09:10 MPV 9.4 fL (9.4-12.3) 10/19/20 09:10 Immature Gran % (Auto) 2.0 % (0.0-0.4) H 10/19/20 09:10 Neut % (Auto) 77.6 % (45-73) H 10/19/20 09:10 Lymph % (Auto) 8.3 % (20-40) L 10/19/20 09:10 Haakon % (Auto) 10.9 % (2-11) 10/19/20 09:10 Eos % (Auto) 0.7 % (0-4) 10/19/20 09:10 Baso % (Auto) 0.5 % (0-2) 10/19/20 09:10 Lymph # (Auto) 0.8 X10*3/uL (1.2-4.9) L 10/19/20 09:10 Haakon # (Auto) 1.1 X10*3/uL (0.1-1.2) 10/19/20 09:10 Eos # (Auto) 0.1 X10*3/uL (0.0-0.4) 10/19/20 09:10 Baso # (Auto) 0.1 X10*3/uL (0.0-0.2) 10/19/20 09:10 Abs Immat Gran (auto) 0.20 X10*3/uL (0.00-0.03) H 10/19/20 09:10 Absolute Neuts (auto) 7.7 X10*3/uL (2.0-8.3) 10/19/20 09:10 Absolute Nucleated RBC 0.000 X10*3/uL (0.0-0.012) 10/19/20 09:10 Nucleated RBC % (auto) 0.0 /100WBC (0.0-0.2) 10/19/20 09:10 Hold Purple Top SEE NOTE 10/13/20 14:46 PT 13.8 SEC (10.8-13.0) H 10/15/20 06:10 INR 1.2 (0.9-1.1) H 10/15/20 06:10 APTT 30.5 SEC (24.1-38.0) 10/13/20 14:46 Sodium 139 mmol/L (135-145) 10/19/20 09:10 Potassium 4.3 mmol/l (3.3-5.1) 10/19/20 09:10 Chloride 109 mmol/L (96-108) H 10/19/20 09:10 Carbon Dioxide 19 mmol/L (22-29) L 10/19/20 09:10 Anion Gap 15 (12-20) 10/19/20 09:10 BUN 15 mg/dL (9-16) 10/19/20 09:10 Creatinine 1.02 mg/dL (0.5-1.4) 10/19/20 09:10 Estim Creat Clear Calc 37.1 10/19/20 09:10 Estimated GFR 53 10/19/20 09:10 Random Glucose 90 mg/dL (60-115) 10/19/20 09:10 Calcium 9.2 mg/dL (8.4-10.2) D 10/19/20 09:10 Magnesium 2.1 mg/dL (1.6-2.6) 10/13/20 14:46 Total Bilirubin 0.5 mg/dL (0.0-1.0) 10/14/20 06:17 Direct Bilirubin 0.4 mg/dL (0.0-0.5) 10/14/20 06:17 AST 313 U/L (5-31) H 10/14/20 06:17 ALT 206 U/L (0-31) H 10/14/20 06:17 Alkaline Phosphatase 1032 U/L (39-117) H 10/14/20 06:17 Total Protein 6.0 g/dL (6.5-8.0) L 10/14/20 06:17 Albumin 2.8 g/dL (3.5-5.0) L 10/17/20 08:45 25-OH Vitamin D Total 38.1 ng/mL (>30) 10/16/20 13:24 PTH Intact 3 pg/mL (14-64) L 10/15/20 06:10 Calcium (PTH Intact) 11.0 mg/dL (8.6-10.4) H 10/15/20 06:10 Urine Color YELLOW 10/13/20 18:52 Urine Appearance CLEAR 10/13/20 18:52 Urine pH 5.5 (5.0-8.0) 10/13/20 18:52 Ur Specific [place] 1.025 (1.005-1.025) 10/13/20 18:52 Urine Protein TRACE MG/DL (NEG-TRACE) 10/13/20 18:52 Urine Glucose (UA) NEG MG/DL (NEG) 10/13/20 18:52 Urine Ketones NEG MG/DL (NEG) 10/13/20 18:52 Urine Blood TRACE (NEG) 10/13/20 18:52 Urine Nitrite POS (NEG) H 10/13/20 18:52 Ur Leukocyte Esterase 1+ (NEG) H 10/13/20 18:52 Urine RBC 0-2 /HPF (0) 10/13/20 18:52 Urine WBC 5-9 /HPF (0-4) H 10/13/20 18:52 Ur Squamous Epith Cells NONE /LPF 10/13/20 18:52 Urine Bacteria 2+ /LPF 10/13/20 18:52 COVID-19 ([facility]) Negative (Negative) 10/19/20 12:45 COVID-19 Clin Com See Note 10/19/20 12:45 Discharge Plan Discharge Anticipated Discharge Date/Time: 10/19/20 12:23 Patient Disposition: Xfer SNF Referrals: [facility] [Outside] (to be transferred for PT. Very de- conditioned. Unable to ambulate. Steps to chair with walker) Pablo Myesr MD [Physician] - (hypercalcemia) Physician,Unknown [Primary Care Provider] - (Primary care Dr. Elyse Shelton at the [facility]. [phone]) Discharge Medications: New acetaminophen 325 mg Tablet 650 mg PO Q6H PRN (Reason: Pain, Mild (Pain Scale 1-3)) Qty: 20 RF: 0 lidocaine [Lidocaine Pain Relief] 4 % Adhesive Patch,Medicated 1 patch transdermal DAILY Qty: 20 RF: 0 polyethylene glycol 3350 17 gram Powder In Packet 17 g PO DAILY Qty: 20 RF: 0 oxycodone 5 mg Tablet 5 mg PO Q4H PRN (Reason: Pain, Severe (Pain Scale 7-10)) Qty: 20 RF: 0 Discharge Orders: Discharge Order (Routine); Ordered 10/19/20 Ordered By: Son Fritz Diet: advance to usual diet Activity on Discharge: As tolerated Discharge Date/Time: 10/19/20 14:43 Other Ambulatory Orders: Basic Metabolic Panel Fasting (Routine) Timeframe: 20201025 Facility: [facility] - Location: Laboratory Ordered By: Son Fritz Activity Restrictions/Additional Instructions: pt has breast cancer on left side , cancer protruding to chest dsd to chest changed today wound drains a serous fluid . pt is 1 assist oob pt slow to ambulate and needs alot of encouragment . pt confused at times , pt responds better to ibprofen . pt also had kyphoplasty , 2 small dsd to back . . Visit Report Forms: Patient Portal Discharge page Care Plan Goals: control pain Health Concerns: metastatic cancer, hypercalemia Plan of Treatment: Pain medication , encourage hydration to prevent hypercalcemia
--- NOTE | 2020-10-19 13:26 | MHC.CM.PN ---
COVID negative. Ambulance will apple picker pt at 2pm. Pt and RN aware
[2020-10-20 13:23] LABS: IgA 371 mg/dL (70-320); IgG 1063 mg/dL (600-1540); IgM 73 mg/dL (50-300)
[2020-10-21 17:23] LABS: Parathyroid Hormone Related Pr 13 pg/mL (14-27)
== END 2020-10-19 14:43 | disposition skilled nursing facility (03) | DRG 516 ==
LOC: HO.ED 15:27 → HO.S3 16:35
PROVIDERS: Internal Medicine Nephrology; Physician Assistant Medical; Radiology Diagnostic Radiology; Admitting Provider Student in an Organized Health Care Education/Training Program; Emergency Provider Internal Medicine; Visit Provider Internal Medicine
PROC: 0PS43ZZ Reposition Thoracic Vertebra, Percutaneous Approach (ICD-10-PCS; principal; 2020-10-15 10:00)
DX: M48.56XA Collapsed vertebra, not elsewhere classified, lumbar region, initial encounter for fracture (principal); C79.51 Secondary malignant neoplasm of bone; C78.7 Secondary malignant neoplasm of liver and intrahepatic bile duct; N39.0 Urinary tract infection, site not specified; N17.9 Acute kidney failure, unspecified; E87.2 Acidosis; I10 Essential (primary) hypertension; E83.52 Hypercalcemia; Z20.828 Contact with and (suspected) exposure to other viral communicable diseases; Z88.0 Allergy status to penicillin; Z88.5 Allergy status to narcotic agent; Z85.3 Personal history of malignant neoplasm of breast; Z79.899 Other long term (current) drug therapy
CPT/HCPCS: 22513; 36415; 72128; 72131; 80048; 80076; 81001; 82040; 82306; 82784; 83519; 83735; 83970; 85025; 85027; 85610; 85730; 86334; 87086; 87088; 87186; 87635; 96361; 96374; 97163; 97530; 99232; 99285; 99291; J0696; J1885; J2250; J2270; J2405; J2430; J3010; Q9967